=== PATIENT | female | born 1980 | race Two or more races ===

== ENCOUNTER → 2024-05-12 | Outpatient (CLI) | payer BC, MEDICAID ==
[2024-05-12 08:00] LABS: Basophils # (auto) 0 10 ^3/uL (0-0.2); Basophils % (auto) 0.3 % (0.0-2.0); Eosinophils # (auto) 0.3 10 ^3/uL (0-0.8); Eosinophils % (auto) 2.4 % (0.0-7.0); Hemoglobin 14.3 g/dL (12.2-16.2); Lymphocytes # (auto) 2.6 10 ^3/uL (0.4-5.4); Lymphocytes % (auto) 23.6 % (10.0-50.0); Mean Corpuscular Hemoglobin 29.6 pg (28.0-32.0); Mean Corpuscular Volume 87.1 fL (80.0-100.0); Monocytes # (auto) 0.5 10 ^3/uL (0-1.3); Monocytes % (auto) 4.8 % (0.0-12.0); Neutrophils # (auto) 7.7 10 ^3/uL (1.6-8.6); Neutrophils % (auto) 68.9 % (37.0-80.0); Red Blood Cells 4.82 10^6/uL (4.0-5.20); White Blood Cell 11.1 10^3/uL (4.4-10.8)
[2024-05-12 08:18] LABS: Albumin 3.9 g/dL (3.2-4.8); Alkaline Phosphatase 104 U/L (46-116); Anion Gap 10 (5-15); Aspartate Aminotransferase 14 U/L (13-40); BUN/Creatinine Ratio 12.6 (10.0-20.0); Bilirubin, Total 0.6 mg/dL (0.2-1.0); Blood Urea Nitrogen 12 mg/dL (9-23); Calcium 9.3 mg/dL (8.7-10.4); Carbon Dioxide 25 mmol/L (20-30); Chloride 107 mmol/L (98-107); Cholesterol 182 mg/dL (< 200); Glucose 106 mg/dL (74-106); HDL Cholesterol 40 mg/dL (40-59); LDL Cholesterol 134 mg/dL (< 100); Potassium 3.1 mmol/L (3.5-5.1); Sodium 142 mmol/L (136-145); Total Protein 6.5 g/dL (5.7-8.2); Triglycerides 176 mg/dL (< 150)
[2024-05-12 08:21] LABS: Alanine Aminotransferase < 9 U/L (7-40)
== END | disposition home or self-care (01) ==
LOC: LAB 07:28
PROVIDERS: ATTEND Student in an Organized Health Care Education/Training Program
DX: Z00.00 Encounter for general adult medical examination without abnormal findings (principal); I10 Essential (primary) hypertension; E66.9 Obesity, unspecified; E03.9 Hypothyroidism, unspecified
CPT/HCPCS: 36415; 80053; 80061; 84443; 85025

== ENCOUNTER 2025-02-15 07:52 | Emergency (ER) | payer BC, MEDICAID ==
[~2025-02-15] VITALS: Ht 160 cm; Wt 125.5 kg
[2025-02-15 08:20] VITALS: PULSE 79; RESP 17; O2SAT 96
--- NOTE | 2025-02-15 08:24 | ED.PDOC ---
General HPI Comments 45 year old female presents to the ED with a chief complaint of RT flank pain onset 1 week. Patient states she began experiencing RT flank pain 1 week ago, had a KUB done 5 days ago, was told she had 0.7 cm stone. Patient noticed pain worsens when she lifts RT leg. PMHx kidney stone, HTN. Denies nausea, vomiting, diarrhea, chest pain, shortness of breath, fevers, chills, dysuria,hematuria. No other symptoms or modifying factors present at this time. Chief Complaint: Flank Pain Time Seen by MD: 08:18 Primary Care Provider: jon Rodgers notes: Medications, Allergies Allergies: Coded Allergies: NO KNOWN ALLERGIES (Unverified , 02/15/25) Information Source: Patient Mode of Arrival: Ambulatory Severity: Moderate Timing: Weeks Duration: Since onset Prehospital treatment: None Onset: Spontaneous Symptoms: None History of: Kidney stone Location: (R) Flank Modifying factors: None associated signs and symptoms: Flank Pain Past Medical History PAST MEDICAL HISTORY: HTN, Kidney Stones Surgical History: Denies all surgeries RANCH HAND LIVESTOCK History: No Pertinent RANCH HAND LIVESTOCK History Family History Family History: Reviewed,noncontributory to illness, No family hx of Cancer, No family hx of DM, No family hx of Heart earnest, No family hx of HTN, No family hx ofKidney earnest, No family hx of Liver earnest, No family hx of Lung earnest, No family hx of Stroke Social History Smoker: Non-Smoker Alcohol: Denies ETOH Use Drugs: Denies Drug Use Lives In: Home Constitutional: denies: chills, diaphoresis, fatigue, fever, malaise, sweats, weakness, others EENTM: denies: blurred vision, double vision, ear bleeding, ear discharge, ear drainage, ear pain, ear ringing, eye pain, eye redness, hearing loss, mouth pain, mouth swelling, nasal discharge, nose bleeding, nose congestion, nose p ain, photophobia, tearing, throat pain, throat swelling, voice changes, others Respiratory: denies: cough, hemoptysis, orthopnea, SOB at rest, shortness of breath, SOB with excertion, stridor, wheezing, others Cardiovascular: denies: chest pain, dizzy spells, diaphoresis, Dyspnea on exertion, edema, irregular heart beat, left arm pain, lightheadedness, palpitations, PND, syncope, others Gastrointestinal: denies: abdomen distended, abdominal pain, blood streaked bowels, constipated, diarrhea, dysphagia, difficulty swallowing, hematemesis, melena, nausea, poor appetite, poor fluid intake, rectal bleeding, rectal pain, vomiting, others Genitourinary: reports: flank pain; denies: abnormal vagina bleeding, burning, dyspareunia, dysuria, frequency, hematuria, incontinence, pain, , vagina discharge, urgency, others Neurological: denies: dizziness, fainting, headache, left sided numbness, left sided weakness, numbness, paresthesia, pre-existing deficit, right sided numbness, right sided weakness, seizure, speech problems, tingling, tremors, weakness, others Musculoskeletal: denies: back pain, gout, joint pain, joint swelling, muscle pain, muscle stiffness, neck pain, others Integumetry: denies: bruises, change in color, change in hair/nails, dryness, laceration, lesions, lumps, rash, wounds, others Allergic/Immunocompromised: denies: Difficulty Healing, Frequent Infections, Hives, Itching, others Hematologic/Lymphatic: denies: anemia, blood clots, easy bleeding, easy bruising, swollen glands, others Endocrine: denies: excessive hunger, excessive sweating, excessive thirst, excessive urination, flushing, intolerance to cold, intolerance to heat, unexpl ained weight gain, unexplained weight loss, others Psychiatric: denies: anxiety, bipolar disorder, depression, hopeless, panic disorder, schizophrenia, sleepless, suicidal, others All Other Systems: Reviewed and Negative Physical Exam General Appearance: Moderate Distress, Normal HEENT: Normal ENT Inspection, Pharynx Normal, TMs Normal Neck: Full Range of Motion, Non-Tender, Normal, Normal Inspection Respiratory: Chest Non-Tender, Lungs Clear, No Accessory Muscle Use, No Respiratory Distress, Normal Breath Sounds Cardiovascular: No Edema, No JVD, No Murmur, No Gallop, Normal Peripheral Pulses, Regular Rate/Rhythm Breast Exam: Deferred Gastrointestinal: No Organomegaly, Non Tender, No Pulsatile Mass, Normal Bowel Sounds, Soft Genitalia: Deferred Pelvic: Deferred Rectal: Deferred Extremities: No calf tenderness, Normal capillary refill, Normal inspection, Normal range of motion, Non-tender, No pedal edema Musculoskeletal : Apperance: Normal Neurologic: Alert, neurology physician assistant II-XII nml as Tested, No Motor Deficits, Normal Affect, Normal Mood, No Sensory Deficits Cerebellar Function: Normal Reflexes: Normal Skin: Dry, Normal Color, Warm Peripheral Pulses: 3+ Radial (R), 3+ Radial (L) Lymphatic: No Adenopathy Was a procedure done? Was a procedure done?: No Differential Diagnosis Kidney stone (Female): Musculoskeletal pain, Urinary obstruction, Urolithiasis X-Ray, Labs, Meds, VS Vital Signs Date Time Temp Pulse Resp B/P (MAP) Pulse Ox O2 Delivery O2 Flow Rate FiO2 02/15/25 08:20 98.6 79 17 114/68 (83) 96 98.6 02/15/25 08:20 79 17 96 Room Air* 0 21 02/15/25 08:09 98.6 79 17 114/68 (83) 96 98.6 Lab Test 02/15/25 08:30 02/15/25 08:05 Range/Units White Blood Count 10.0 4.4-10.8 10^3/uL Red Blood Count 5.16 4.0-5.20 10^6/uL Hemoglobin 15.4 12.2-16.2 g/dL Hematocrit 44.7 36.0-46.0 % Mean Corpuscular Volume 86.6 80.0-100.0 fL Mean Corpuscular Hemoglobin 29.8 28.0-32.0 pg Mean Corpuscular Hemoglobin Concent 34.4 32.0-36.0 g/dL Red Cell Distribution Width 17.0 H 11.8-14.3 % Platelet Count 356 140-450 10^3/uL Mean Platelet Volume 8.3 6.9-10.8 fL Neutrophils (%) (Auto) 71.2 37.0-80.0 % Lymphocytes (%) (Auto) 23.0 10.0-50.0 % Monocytes (%) (Auto) 3.8 0.0-12.0 % Eosinophils (%) (Auto) 1.4 0.0-7.0 % Basophils (%) (Auto) 0.6 0.0-2.0 % Neutrophils # (Auto) 7.1 1.6-8.6 10 ^3/uL Lymphocytes # (Auto) 2.3 0.4-5.4 10 ^3/uL Monocytes # (Auto) 0.4 0-1.3 10 ^3/uL Eosinophils # (Auto) 0.1 0-0.8 10 ^3/uL Basophils # (Auto) 0.1 0-0.2 10 ^3/uL Nucleated Red Blood Cells 0.1 % Sodium Level 140 136-145 mmol/L Potassium Level 3.5 3.5-5.1 mmol/L Chloride Level 108 H 98-107 mmol/L Carbon Dioxide Level 22 20-31 mmol/L Anion Gap 10 5-15 Blood Urea Nitrogen 14 9-23 mg/dL Creatinine 1.05 H 0.550-1.02 mg/dL Glomerular Filtration Rate Calc 67 >90 mL/min BUN/Creatinine Ratio 13.3 10.0-20.0 Serum Glucose 99 74-106 mg/dL Calcium Level 9.4 8.7-10.4 mg/dL Urine Color Light-yellow Yellow Urine Clarity Clear Clear Urine pH 7.0 5.0-9.0 Urine Specific [place] 1.017 1.001-1.035 Urine Protein Negative Negative Urine Ketones Negative Negative Urine Blood Trace H Negative /uL Urine Nitrite Negative Negative Urine Bilirubin Negative Negative Urine Urobilinogen Normal Negative mg/dL Urine Leukocyte Esterase 2+ Negative /uL Urine RBC 1 0 - 4 /hpf Urine Microscopic WBC 3 0-5 /HPF Urine Squamous Epithelial Cells Few <5 /hpf Urine Bacteria None seen None Seen /hpf Urine Glucose Normal Normal mg/dL Current Medications Medications (Trade) Dose Ordered Sig/Rafael Route Start Time Stop Time Status Last Admin Sodium Chloride 1,000 ml @ 1,000 mls/hr Q1H ONCE IV 02/15/25 08:30 02/15/25 09:29 DC 02/15/25 09:36 Sodium Chloride 1,000 ml @ 150 mls/hr Q6H40M ONCE IV 02/15/25 08:30 02/15/25 15:09 02/15/25 09:37 Ketorolac Tromethamine (Toradol Injection) 30 mg ONCE ONCE IV 02/15/25 08:30 02/15/25 08:31 DC 02/15/25 09:37 Tamsulosin HCl (Flomax) 0.4 mg ONCE ONCE PO 02/15/25 10:15 02/15/25 10:16 DC 02/15/25 10:24 Patient alert. Complaining of flank pain. Vitals stable. Establish intravenous access. Given fluids. Given Toradol. Reviewed her history. Continue cardiac monitoring. Urinalysis shows UTI. Was given prescription of Macrobid. CT scan of the abdomen does show 4 mm stone. Nonobstructive. Explained to the patient. Was told to follow up with her primary care physician. Was told to come back if there is any problem. [place] [id number] Ph: [phone] DIAGNOSTIC IMAGING Diagnostic Imaging Report : [id number] Signed PATIENT: MITZY COMER ACCT: [id number] UNIT: [id number] : 1980 LOC: ER ROOM / BED: / AGE / SEX: 45 / F ADM STATUS: REG ER SERVICE 8 ORDERING PHYSICIAN: AMINTA PERDUE MD PROCEDURE(s): ABPL - CT AB PEL WO CON-NO ORAL OR IV REASON: stone ORDER NUMBER(s): [id number], ACCESSION NUMBER(s): [id number] Exam: CT CT AB PEL WO CON-NO ORAL OR IV History: Stone Comparison Study: None available at time of dictation. Technique: Multidetector spiral CT of the abdomen and pelvis was performed from lung bases to pubic symphysis. Imaging was performed without intravenous con trast. Coronal and sagittal multiplanar reformats were obtained from the axial data set by the technologist. Radiation Dose : 1. Abdomen/Pelvis: CTDIvol 27.9 mGy, DLP 1608.6 mGy*cm. Findings: Evaluation of vasculature and solid organs is limited due to lack of intravenous contrast use. Lung Bases: Lung bases are clear. Visualized portions of the heart and pericardium are unremarkable. Liver: The liver is normal in size. No focal lesions. Gallbladder and Biliary Tree: The gallbladder is surgically absent. No intrahepatic or extrahepatic biliary ductal dilatation. Spleen: Unremarkable Pancreas: The pancreas is grossly unremarkable. Adrenal Glands: Unremarkable Kidneys: 4 mm nonobstructive calculus in the lower pole of the right kidney. The left kidney is unremarkable. No hydronephrosis. GI tract: The stomach is grossly normal in appearance. No evidence of small kamron l wall thickening or abnormal dilatation to suggest bowel obstruction. Sigmoid diverticulosis without acute diverticulitis. Normal appendix. Peritoneum/mesentery/retroperitoneum. No evidence of free intraperitoneal air. No ascites. No evidence of suspicious lymphadenopathy. Abdominal Wall: Unremarkable. Vasculature: The visualized abdominal aorta is normal in size and caliber. Evaluation of abdominal and pelvic vessels is limited due to lack of intravenous contrast. Urinary Bladder: Grossly unremarkable for degree of distention. Pelvic Organs: Unremarkable Musculoskeletal: No aggressive focal bony lesions, acute fractures or dislocation. IMPRESSION: 1. No acute abdominal or pelvic findings. 2. Nonobstructive right nephrolithiasis measuring 4 mm. 3. Sigmoid diverticulosis without acute diverticulitis. 4. Cholecystectomy. ATED BY: TAURUS HARGROVE MD DICTATED DATE/TIME: 02/15/25910 SIGNED BY: TAURUS HARGROVE MD SIGNED DATE/TIME: 02/15/25910 CC: Time of 1ST Reevaluation: 08:48 Reevaluation 1ST: Unchanged Time of 2ND Reevaluation: 10:39 Reevaluation 2ND: Improved Patient Education/Counseling: Diagnosis, Treatment, Prognosis Family Education/Counseling: No Family Present Additional Information The following tests were ordered, and results were reviewed by me: CBC, UA, BMP, CT AB PEL WO CON I reviewed and agreed with the following test results read by other providers: CT AB PEL WO CON I discussed treatment and results with medical personnel and: Patient Comprehensive systems review obtained and negative except for what is stated in the HPI. Departure 1 Departure Time of Disposition: 08:35 Impression: Primary Impression: Kidney stone Additional Impression: UTI (urinary tract infection) Qualified Codes: N30.00 - Acute cystitis without hematuria Disposition: HOME / SELF CARE / HOMELESS Condition: Good e-Prescriptions Nitrofurantoin Monohydrate Mac (Macrobid) 100 Mg Cap 100 MG PO BID for 7 Days, #14 CAP Prov: AMINTA PERDUE MD 02/15/25 Discharged With: Self Critical Care Note Critical Care Time?: No Stability Stability form required: No Heart Score Heart Score: Heart Score Response (Comments) Value History N/A 0 EKG N/A 0 Age N/A 0 Risk Factors N/A 0 Troponin N/A 0 Total 0 I personally scribed for AMINTA PERDUE MD ([email or web address]) on 02/15/25 at 08:24. Electronically submitted by Karely Mcpherson ([email or web address]). I personally scribed for AMINTA PERDUE MD ([email or web address]) on 02/15/25 at 08:55. Electronically submitted by Karely Mcpherson ([email or web address]). I personally scribed for AMINTA PERDUE MD ([email or web address]) on 02/15/25 at 09:29. Electronically submitted by Karely Mcpherson ([email or web address]). AMINTA PERDUE MD Feb 15, 2025 08:24
[2025-02-15 09:02] LABS: Potassium 3.5 mmol/L (3.5-5.1); Sodium 140 mmol/L (136-145)
[2025-02-15 09:03] LABS: Anion Gap 10 (5-15); Calcium 9.4 mg/dL (8.7-10.4); Carbon Dioxide 22 mmol/L (20-31)
[2025-02-15 09:08] LABS: BUN/Creatinine Ratio 13.3 (10.0-20.0); Blood Urea Nitrogen 14 mg/dL (9-23); Glucose 99 mg/dL (74-106)
[2025-02-15 09:09] LABS: Basophils # (auto) 0.1 10 ^3/uL (0-0.2); Basophils % (auto) 0.6 % (0.0-2.0); Chloride 108 mmol/L (98-107); Eosinophils # (auto) 0.1 10 ^3/uL (0-0.8); Eosinophils % (auto) 1.4 % (0.0-7.0); Hematocrit 44.7 % (36.0-46.0); Hemoglobin 15.4 g/dL (12.2-16.2); Lymphocytes # (auto) 2.3 10 ^3/uL (0.4-5.4); Mean Corpuscular Hemoglobin 29.8 pg (28.0-32.0); Mean Corpuscular Hgb Conc. 34.4 g/dL (32.0-36.0); Mean Corpuscular Volume 86.6 fL (80.0-100.0); Monocytes # (auto) 0.4 10 ^3/uL (0-1.3); Monocytes % (auto) 3.8 % (0.0-12.0); Neutrophils # (auto) 7.1 10 ^3/uL (1.6-8.6); Neutrophils % (auto) 71.2 % (37.0-80.0); Nucleated Red Blood Cells % 0.1 %; Platelet Count (auto) 356 10^3/uL (140-450); Red Blood Cells 5.16 10^6/uL (4.0-5.20)
--- NOTE | 2025-02-15 09:14 | DVH ---
Exam: CT CT AB PEL WO CON-NO ORAL OR IV History: Stone Comparison Study: None available at time of dictation. Technique: Multidetector spiral CT of the abdomen and pelvis was performed from lung bases to pubic s ymphysis. Imaging was performed without intravenous contrast. Coronal and sagittal multiplanar reform ats were obtained from the axial data set by the technologist. Radiation Dose : 1. Abdomen/Pelvis: CTDIvol 27.9 mGy, DLP 1608.6 mGy*cm. Findings: Evaluation of vasculature and solid organs is limited due to lack of intravenous contrast use. Lung Bases: Lung bases are clear. Visualized portions of the heart and pericardium are unremarkable. Liver: The liver is normal in size. No focal lesions. Gallbladder and Biliary Tree: The gallbladder is surgically absent. No intrahepatic or extrahepatic b iliary ductal dilatation. Spleen: Unremarkable Pancreas: The pancreas is grossly unremarkable. Adrenal Glands: Unremarkable Kidneys: 4 mm nonobstructive calculus in the lower pole of the right kidney. The left kidney is unre markable. No hydronephrosis. GI tract: The stomach is grossly normal in appearance. No evidence of small bowel wall thickening or abnormal dilatation to suggest bowel obstruction. Sigmoid diverticulosis without acute diverticulitis . Normal appendix. Peritoneum/mesentery/retroperitoneum. No evidence of free intraperitoneal air. No ascites. No evidenc e of suspicious lymphadenopathy. Abdominal Wall: Unremarkable. Vasculature: The visualized abdominal aorta is normal in size and caliber. Evaluation of abdominal a nd pelvic vessels is limited due to lack of intravenous contrast. Urinary Bladder: Grossly unremarkable for degree of distention. Pelvic Organs: Unremarkable Musculoskeletal: No aggressive focal bony lesions, acute fractures or dislocation. IMPRESSION: 1. No acute abdominal or pelvic findings. 2. Nonobstructive right nephrolithiasis measuring 4 mm. 3. Sigmoid diverticulosis without acute diverticulitis. 4. Cholecystectomy.
[2025-02-15] MEDS: SODIUM CHLORIDE 0.9% 1,000 ML IV ONE ×2 (09:36→09:37)
[2025-02-15] MEDS: KETOROLAC TROMETH 30 MG/ML 1ML VIAL IV ONE (09:37)
[2025-02-15 09:50] LABS: Urine Bacteria None Seen /hpf (None Seen)
[2025-02-15 10:13] LABS: Urine Blood TRACE /uL (Negative); Urine Clarity Clear (Clear); Urine Color Light-Yellow (Yellow); Urine Protein, UAD Negative (Negative); Urine Specific Gravity 1.017 (1.001-1.035); Urine Squamous Epithelial Cell FEW /hpf (<5); Urine Urobilinogen Normal (Negative); Urine WBC 3 /HPF (0-5)
[2025-02-15] MEDS: TAMSULOSIN HYDROCHLORIDE 0.4 MG CAP PO ONE (10:24)
[2025-02-15] MEDS ORDERED: NITR-87 PO (10:39)
[2025-02-15 11:04] VITALS: BP 151/71; PULSE 64; RESP 18; TEMP 98.9; O2SAT 97
== END 2025-02-15 11:07 | disposition home or self-care (01) ==
LOC: ER 07:52
DX: N20.0 Calculus of kidney (principal); N39.0 Urinary tract infection, site not specified; I10 Essential (primary) hypertension; Z87.442 Personal history of urinary calculi
CPT/HCPCS: 36415; 74176; 80048; 81001; 85025; 96361; 96374; 99285; J1885; J7030

== ENCOUNTER 2025-02-19 04:54 | Inpatient (IN) | payer BC, MEDICAID ==
[~2025-02-19] VITALS: Ht 160 cm; Wt 131.1 kg
[~2025-02-19 04:54] MED LIST: NITR-87 PO
--- NOTE | 2025-02-19 05:21 | ED.PDOC ---
General HPI Comments 45-year-old female came to ER for right flank pains. Patient has been having right flank pains for the past 5 days. Was seen and diagnosed of kidney stones. Currently taking Flomax, [place] and Macrobid. Few hours ago while patient was sleeping, she woke up due to sudden-onset right flank pains, worse than before, associated with nausea. Denies any vomiting or fever. Denies any dysuria or gross hematuria. Scheduled for ESWL on March 10. Chief Complaint: Flank Pain Time Seen by MD: 05:19 Primary Care Provider: jon Rodgers notes: Nurses Notes Allergies: Coded Allergies: NO KNOWN ALLERGIES (Unverified , 02/15/25) Home Meds Active Scripts Cefdinir (Cefdinir) 300 Mg Cap, 1 CAP PO BID for 10 Days, #14 CAP Prov:LA NENA CELIS MD 02/19/25 Nitrofurantoin Monohydrate Mac (Macrobid) 100 Mg Cap, 100 MG PO BID for 7 Days, #14 CAP Prov:AMINTA PERDUE MD 02/15/25 Information Source: Patient Mode of Arrival: Ambulatory Severity: Moderate Inability to void: Mild Timing: Hours Duration: Since onset Has not urinated for: Minutes Prehospital treatment: None Onset: Spontaneous Symptoms: None History of: Kidney stone Location: (R) Flank associated signs and symptoms: Nausea, Flank Pain Past Medical History PAST MEDICAL HISTORY: HTN, Kidney Stones Surgical History: Denies all surgeries MATERIAL MOVER History: No Pertinent MATERIAL MOVER History Family History Family History: Reviewed,noncontributory to illness, No family hx of Cancer, No family hx of DM, No family hx of Heart earnest, No family hx of HTN, No family hx ofKidney earnest, No family hx of Liver earnest, No family hx of Lung earnest, No family hx of Stroke Social History Smoker: Non-Smoker Alcohol: Denies ETOH Use Drugs: Denies Drug Use Lives In: Home Constitutional: denies: chills, diaphoresis, fatigue, fever, malaise, sweats, weakness, others EENTM: denies: blurred vision, double vision, ear bleeding, ear discharge, ear drainage, ear pain, ear ringing, eye pain, eye redness, hearing loss, mouth pain, mouth swelling, nasal discharge, nose bleeding, nose congestion, nose pain, photophobia, tearing, throat pain, throat swelling, voice changes, others Respiratory: denies: cough, hemoptysis, orthopnea, SOB at rest, shortness of breath, SOB with excertion, stridor, wheezing, others Cardiovascular: denies: chest pain, dizzy spells, diaphoresis, Dyspnea on exertion, edema, irregular heart beat, left arm pain, lightheadedness, palpi tations, PND, syncope, others Gastrointestinal: reports: nausea; denies: abdomen distended, abdominal pain, blood streaked bowels, constipated, diarrhea, dysphagia, difficulty swallowing, hematemesis, melena, poor appetite, poor fluid intake, rectal bleeding, rectal pain, vomiting, others Genitourinary: reports: flank pain (Right); denies: abnormal vagina bleeding, burning, dyspareunia, dysuria, frequency, hematuria, incontinence, pain, , vagina discharge, urgency, others Neurological: denies: dizziness, fainting, headache, left sided numbness, left sided weakness, numbness, paresthesia, pre-existing deficit, right sided numbness, right sided weakness, seizure, speech problems, tingling, tremors, weakness, others Musculoskeletal: denies: back pain, gout, joint pain, joint swelling, muscle pain, muscle stiffness, neck pain, others Integumetry: denies: bruises, change in color, change in hair/nails, dryness, laceration, lesions, lumps, rash, wounds, others Allergic/Immunocompromised: denies: Difficulty Healing, Frequent Infections, Hives, Itching, others Hematologic/Lymphatic: denies: anemia, blood clots, easy bleeding, easy bruising, swollen glands, others Endocrine: denies: excessive hunger, excessive sweating, excessive thirst, excessive urination, flushing, intolerance to cold, intolerance to heat, unexplained weight gain, unexplained weight loss, others Psychiatric: denies: anxiety, bipolar disorder, depression, hopeless, panic disorder, schizophrenia, sleepless, suicidal, others Physical Exam General Appearance: No Apparent Distress, Normal HEENT: Normal ENT Inspection, Pharynx Normal, TMs Normal Neck: Full Range of Motion, Non-Tender, Normal, Normal Inspection Respiratory: Chest Non-Tender, Lungs Clear, No Accessory Muscle Use, No Respiratory Distress, Normal Breath Sounds Cardiovascular: No Edema, No JVD, No Murmur, No Gallop, Normal Peripheral Pulses, Regular Rate/Rhythm Breast Exam: Deferred Gastrointestinal: No Organomegaly, No Pulsatile Mass, Normal Bowel Sounds, Soft, Tenderness (Right CVA) Genitalia: Deferred Pelvic: Deferred Rectal: Deferred Extremities: No calf tenderness, Normal capillary refill, Normal inspection, Normal range of motion, Non-tender, No pedal edema Musculoskeletal : Apperance: Normal Neurologic: Alert, wet pan mixer II-XII nml as Tested, No Motor Deficits, Normal Affect, Normal Mood, No Sensory Deficits Cerebellar Function: Normal Reflexes: Normal Skin: Dry, Normal Color, Warm Lymphatic: No Adenopathy Was a procedure done? Was a procedure done?: No Differential Diagnosis Kidney stone (Female): Pyelonephritis, Renal failure, Strain, Urinary obstruction, Urolithiasis Urinary Problem (Female): Pyelonephritis, Urinary retention, Urolithiasis, UTI X-Ray, Labs, Meds, VS Vital Signs Date Time Temp Pulse Resp B/P (MAP) Pulse Ox O2 Delivery O2 Flow Rate FiO2 02/19/25 05:06 98.2 80 20 155/90 (111) 98 98.2 Lab Test 02/19/25 06:25 02/19/25 05:42 Range/Units Urine Color Yellow Yellow Urine Clarity Turbid H Clear Urine pH 6.5 5.0-9.0 Urine Specific [place] 1.013 1.001-1.035 Urine Protein Negative Negative Urine Ketones 1+ H Negative Urine Blood 1+ H Negative /uL Urine Nitrite Negative Negative Urine Bilirubin Negative Negative Urine Urobilinogen Normal Negative mg/dL Urine Leukocyte Esterase 3+ Negative /uL Urine RBC 1 0 - 4 /hpf Urine Microscopic WBC 13 H 0-5 /HPF Urine Squamous Epithelial Cells Mod <5 /hpf Urine Bacteria Few H None Seen /hpf Urine Yeast (Budding) Occasional None Seen /hpf Urine Glucose Normal Normal mg/dL White Blood Count 8.7 4.4-10.8 10^3/uL Red Blood Count 4.96 4.0-5.20 10^6/uL Hemoglobin 14.8 12.2-16.2 g/dL Hematocrit 43.0 36.0-46.0 % Mean Corpuscular Volume 86.7 80.0-100.0 fL Mean Corpuscular Hemoglobin 29.9 28.0-32.0 pg Mean Corpuscular Hemoglobin Concent 34.5 32.0-36.0 g/dL Red Cell Distribution Width 16.4 H 11.8-14.3 % Platelet Count 387 140-450 10^3/uL Mean Platelet Volume 8.1 6.9-10.8 fL Neutrophils (%) (Auto) 72.2 37.0-80.0 % Lymphocytes (%) (Auto) 22.0 10.0-50.0 % Monocytes (%) (Auto) 4.1 0.0-12.0 % Eosinophils (%) (Auto) 1.4 0.0-7.0 % Basophils (%) (Auto) 0.3 0.0-2.0 % Neutrophils # (Auto) 6.3 1.6-8.6 10 ^3/uL Lymphocytes # (Auto) 1.9 0.4-5.4 10 ^3/uL Monocytes # (Auto) 0.4 0-1.3 10 ^3/uL Eosinophils # (Auto) 0.1 0-0.8 10 ^3/uL Basophils # (Auto) 0 0-0.2 10 ^3/uL Nucleated Red Blood Cells 0.1 % Sodium Level 140 136-145 mmol/L Potassium Level 3.5 3.5-5.1 mmol/L Chloride Level 107 98-107 mmol/L Carbon Dioxide Level 23 20-31 mmol/L Anion Gap 10 5-15 Blood Urea Nitrogen 11 9-23 mg/dL Creatinine 0.93 0.550-1.02 mg/dL Glomerular Filtration Rate Calc 77 >90 mL/min BUN/Creatinine Ratio 11.8 10.0-20.0 Serum Glucose 115 H 74-106 mg/dL Calcium Level 9.0 8.7-10.4 mg/dL Total Bilirubin 0.6 0.2-1.0 mg/dL Aspartate Amino Transferase (AST) 15 13-40 U/L Alanine Aminotransferase (ALT) < 9 7-40 U/L Alkaline Phosphatase 103 46-116 U/L Total Protein 7.5 5.7-8.2 g/dL Albumin 4.4 3.2-4.8 g/dL Lipase 40 12-53 U/L Time of 1ST Reevaluation: 05:16 Reevaluation 1ST: Unchanged Patient Education/Counseling: Diagnosis, Treatment, Prognosis, Need For Follow Up Family Education/Counseling: Diagnosis, Treatment, Prognosis, Need For Follow Up, No Family Present Additional Information pt continues to be visibly uncomfortable. she recently had a kidney stone and UTI. she failed outpatient antibiotic and continues to have symptoms. pt's ct does not show stones but some stones are not visible on CT. i will admit pt for symptoms treatment and antibiotic with urine culture. she may be at risk for sepsis if she has a stone which is not seen on the CT and uti associated Departure 1 Departure Time of Disposition: 06:59 Impression: Primary Impression: Flank pain Additional Impression: UTI (urinary tract infection) Qualified Codes: N39.0 - Urinary tract infection, site not specified Disposition: ADMITTED INPATIENT Admit to: Med Surg Condition: Stable e-Prescriptions Cefdinir (Cefdinir) 300 Mg Cap 1 CAP PO BID for 10 Days, #14 CAP Prov: LA NENA CELIS MD 02/19/25 Discharged With: Self, Relative Critical Care Note Critical Care Time?: Yes (45 min-critical care time only) Critical care comment: Due to concerns for patients condition deteriorating, the care required my highest level of attention and readiness to intervene. I assessed the patient, reviewed the medical records, ordered the appropriate tests and treatments, then reassessed for results and responsiveness. I communicated with medical personnel and consultants and formulated a plan of care. Total critical care time excludes any procedures Stability Stability form required: No Heart Score Heart Score: Heart Score Response (Comments) Value History N/A 0 EKG N/A 0 Age N/A 0 Risk Factors N/A 0 Troponin N/A 0 Total 0 I personally scribed for LA NENA CELIS MD ([email or web address]) on 02/19/25 at 05:20. Electronically submitted by Scott Yoder ([email or web address]). LA NENA CELIS MD Feb 19, 2025 05:20 INÉS HALL MD Feb 19, 2025 07:02
[2025-02-19] MEDS ORDERED: CEFD300C2 PO (05:42)
--- NOTE | 2025-02-19 06:08 | DVH ---
Exam: CT CT AB PEL WO CON-NO ORAL OR IV History: right flank pain Comparison Study: CT CT AB PEL WO CON-NO ORAL OR IV on DOS: 02/15/25 Technique: Multidetector spiral CT of the abdomen was performed from lung bases to pubic symphysis. I maging was performed without IV contrast. Axial, coronal and sagittal multiplanar reformats were obta ined from the axial data set by the technologist. Radiation Dose : 1. Abdomen/Pelvis: CTDIvol 28.01 mGy, DLP 1853.04 mGy*cm. Findings: Evaluation of solid organs is limited due to lack of intravenous contrast use. Lung Bases: No acute or significant lung base finding. Normal heart size. No pleural or pericardial effusion. Liver: The liver is enlarged, measuring 21.7 cm in craniocaudal dimension. No focal lesions. 0.7 cm focal subcapsular calcification noted along the inferomedial hepatic margin. Gallbladder and Biliary Tree: The gallbladder is surgically absent. Spleen: Unremarkable Pancreas: The pancreas is grossly normal in appearance. Adrenal Glands: Unremarkable Kidneys: Nonobstructing right inferior pole pelvocaliceal calculus measures 0.3 cm. No evidence of hy dronephrosis. The kidneys are otherwise normal in appearance. Bladder: Grossly unremarkable for degree of distention. Bowel: The stomach is grossly normal in appearance. Small bowel and colon are normal in caliber and d istribution. The appendix is normal. Ascites: Absent Lymphadenopathy: No mesenteric, retroperitoneal or periportal lymphadenopathy. Abdominal Wall and Mesentery: Unremarkable. Vasculature: The visualized abdominal aorta is normal in size and caliber. Evaluation of abdominal a nd pelvic vessels is limited due to lack of intravenous contrast. Pelvic Organs: Unremarkable Musculoskeletal: No aggressive focal bony lesions, acute fractures or dislocation. IMPRESSION: 1. No acute abdominal or pelvic findings. 2. Nonobstructive right nephrolithiasis. 3. Hepatomegaly. Radiation optimization: All CT scans at this facility use at least one of these dose optimization teto hniques: automated exposure control mA and/or kV adjustment per patient size (includes targeted exam s where dose is matched to clinical indication) or iterative reconstruction.
[2025-02-19 06:28] LABS: Basophils # (auto) 0 10 ^3/uL (0-0.2); Basophils % (auto) 0.3 % (0.0-2.0); Eosinophils # (auto) 0.1 10 ^3/uL (0-0.8); Eosinophils % (auto) 1.4 % (0.0-7.0); Hemoglobin 14.8 g/dL (12.2-16.2); Lymphocytes # (auto) 1.9 10 ^3/uL (0.4-5.4); Mean Corpuscular Hemoglobin 29.9 pg (28.0-32.0); Mean Corpuscular Hgb Conc. 34.5 g/dL (32.0-36.0); Mean Corpuscular Volume 86.7 fL (80.0-100.0); Monocytes # (auto) 0.4 10 ^3/uL (0-1.3); Monocytes % (auto) 4.1 % (0.0-12.0); Neutrophils # (auto) 6.3 10 ^3/uL (1.6-8.6); Neutrophils % (auto) 72.2 % (37.0-80.0); Nucleated Red Blood Cells % 0.1 %; Platelet Count (auto) 387 10^3/uL (140-450); Red Blood Cells 4.96 10^6/uL (4.0-5.20); Red Cell Distribution Width 16.4 % (11.8-14.3); White Blood Cell 8.7 10^3/uL (4.4-10.8)
[2025-02-19 06:32] LABS: Albumin 4.4 g/dL (3.2-4.8); Alkaline Phosphatase 103 U/L (46-116); Anion Gap 10 (5-15); Aspartate Aminotransferase 15 U/L (13-40); BUN/Creatinine Ratio 11.8 (10.0-20.0); Bilirubin, Total 0.6 mg/dL (0.2-1.0); Blood Urea Nitrogen 11 mg/dL (9-23); Carbon Dioxide 23 mmol/L (20-31); Chloride 107 mmol/L (98-107); Lipase 40 U/L (12-53); Potassium 3.5 mmol/L (3.5-5.1); Sodium 140 mmol/L (136-145); Total Protein 7.5 g/dL (5.7-8.2)
[2025-02-19 06:43] LABS: Alanine Aminotransferase < 9 U/L (7-40); Glucose 115 mg/dL (74-106)
[2025-02-19 06:43] LABS: Urine Bacteria FEW /hpf (None Seen); Urine Blood 1+ /uL (Negative); Urine Budding Yeast OCCASIONAL /hpf (None Seen); Urine Clarity Turbid (Clear); Urine Color Yellow (Yellow); Urine Protein, UAD Negative (Negative); Urine Specific Gravity 1.013 (1.001-1.035); Urine Squamous Epithelial Cell MOD /hpf (<5); Urine Urobilinogen Normal (Negative); Urine WBC 13 /HPF (0-5); Urine pH 6.5 (5.0-9.0)
--- NOTE | 2025-02-19 07:07 | DVHHP2 ---
History of Present Illness Reason for Visit: right flank pain History of Present Illness 45-year-old female with a past medical history significant for hypertension (HTN) and nephrolithiasis (kidney stones) who presents with acute worsening right-sided flank pain. The patient reports a 5-day history of flank discomfort, previously attributed to a known kidney stone for which she has a urological procedure scheduled on March 10, 2025. She has been managing symptoms at home with flomax. Early this morning, she experienced sudden onset of severe right flank pain radiating to her pelvic region. She denies associated fever, dysuria, hematuria, chest pain, shortness of breath, or diarrhea. In the ED, she underwe nt evaluation including CBC, CMP, UA, and a CT abdomen/pelvis. Labs were unremarkable except for ketonemia some blood and mild bacteria. CT confirmed persistent nephrolithiasis without hydronephrosis. She was treated with Zofran and IV fluids (normal saline), ceftriaxone and toradol diluadid with partial symptom relief. Given her presentation, obstructive uropathy with pain crisis is suspected. While pyelonephritis is considered, since with right flank pain will admit for pain management. Past Medical History Hypertension kidney stones Past Surgical History Denies surgical history Family History Reviewed, non-contributory to the management of this case. Past Social History The patient lives at home, denies smoking, alcohol or illicit drugs abuse. Review of Systems Constitutional: No: Fever, Chills, Sweats, Weakness, Malaise, Other Eyes: No: Pain, Vision change, Conjunctivae inflammation, Eyelid inflammation, Other, Redness ENT: No: Ear pain, Ear discharge, Nose pain, Nose discharge, Nose congestion, Mouth pain, Mouth swelling, Throat pain, Throat swelling, Other Respiratory: No: Cough, Dry, Shortness of breath, SOB with excertion, Wheezing, Hemoptysis, Pleuritic Pain, Sputum, Wheezing, Other Cardiovascular: No: Chest Pain, Palpitations, Orthopnea, Paroxysmal Noc. Dyspnea, Edema, Lt Headedness, Other Gastrointestinal: Nausea, Vomiting, Abdominal Pain; No: Diarrhea, Constipation, Melena, Hematochezia, Other Genitourinary: No Dysuria, No Frequency, No Incontinence, No Hematuria, No Retention, No Other Musculoskeletal: No: other, neck pain, shoulder pain, arm pain, back pain, hand pain, leg pain, foot pain Skin: No: Rash, Lesions, Jaundice, Bruising, Other Neurological: No: Weakness, Numbness, Incoordination, Change in speech, Confusion, Seizures, Other Allergies: Coded Allergies: NO KNOWN ALLERGIES (Unverified , 02/15/25) Exam Vital Signs Vital Signs Date Time Temp Pulse Resp B/P (MAP) Pulse Ox O2 Delivery O2 Flow Rate FiO2 02/19/25 05:06 98.2 80 20 155/90 (111) 98 98.2 General Appearance: Alert, Oriented X3, Cooperative, No acute distress HEENT: Atraumatic, PERRLA, EOMI, Mucous membr. moist/pink Respiratory: Clear to auscultation, Normal air movement Cardiovascular: Regular rate, Normal S1, Normal S2, No murmurs Abdominal: Normal bowel sounds, Soft, No hepatospenomegaly, No masses, Other (right flank pain ) Extremities: No clubbing, No cyanosis, No edema, Normal pulses, No tenderness/swelling Skin: No rashes, No breakdown, No significant lesion Neuro: Normal gait, Normal speech, Strength at 5/5 X4 ext, Normal tone, S ensation intact, Cranial nerves 3-12 NL Psych/Mental Status: Mental status NL, Mood NL Labs/Xrays CT scan abdomen pelvis shows nonobstructing kidney stone I reviewed labs, imaging CT scan abdomen pelvis, EKG and all diagnostic studies on this patient from ED records and the medical chart Labs Test 02/19/25 06:25 02/19/25 05:42 Range/Units Urine Color Yellow Yellow Urine Clarity Turbid H Clear Urine pH 6.5 5.0-9.0 Urine Specific [place] 1.013 1.001-1.035 Urine Protein Negative Negative Urine Ketones 1+ H Negative Urine Blood 1+ H Negative /uL Urine Nitrite Negative Negative Urine Bilirubin Negative Negative Urine Urobilinogen Normal Negative mg/dL Urine Leukocyte Esterase 3+ Negative /uL Urine RBC 1 0 - 4 /hpf Urine Microscopic WBC 13 H 0-5 /HPF Urine Squamous Epithelial Cells Mod <5 /hpf Urine Bacteria Few H None Seen /hpf Urine Yeast (Budding) Occasional None Seen /hpf Urine Glucose Normal Normal mg/dL White Blood Count 8.7 4.4-10.8 10^3/uL Red Blood Count 4.96 4.0-5.20 10^6/uL Hemoglobin 14.8 12.2-16.2 g/dL Hematocrit 43.0 36.0-46.0 % Mean Corpuscular Volume 86.7 80.0-100.0 fL Mean Corpuscular Hemoglobin 29.9 28.0-32.0 pg Mean Corpuscular Hemoglobin Concent 34.5 32.0-36.0 g/dL Red Cell Distribution Width 16.4 H 11.8-14.3 % Platelet Count 387 140-450 10^3/uL Mean Platelet Volume 8.1 6.9-10.8 fL Neutrophils (%) (Auto) 72.2 37.0-80.0 % Lymphocytes (%) (Auto) 22.0 10.0-50.0 % Monocytes (%) (Auto) 4.1 0.0-12.0 % Eosinophils (%) (Auto) 1.4 0.0-7.0 % Basophils (%) (Auto) 0.3 0.0-2.0 % Neutrophils # (Auto) 6.3 1.6-8.6 10 ^3/uL Lymphocytes # (Auto) 1.9 0.4-5.4 10 ^3/uL Monocytes # (Auto) 0.4 0-1.3 10 ^3/uL Eosinophils # (Auto) 0.1 0-0.8 10 ^3/uL Basophils # (Auto) 0 0-0.2 10 ^3/uL Nucleated Red Blood Cells 0.1 % Sodium Level 140 136-145 mmol/L Potassium Level 3.5 3.5-5.1 mmol/L Chloride Level 107 98-107 mmol/L Carbon Dioxide Level 23 20-31 mmol/L Anion Gap 10 5-15 Blood Urea Nitrogen 11 9-23 mg/dL Creatinine 0.93 0.550-1.02 mg/dL Glomerular Filtration Rate Calc 77 >90 mL/min BUN/Creatinine Ratio 11.8 10.0-20.0 Serum Glucose 115 H 74-106 mg/dL Calcium Level 9.0 8.7-10.4 mg/dL Total Bilirubin 0.6 0.2-1.0 mg/dL Aspartate Amino Transferase (AST) 15 13-40 U/L Alanine Aminotransferase (ALT) < 9 7-40 U/L Alkaline Phosphatase 103 46-116 U/L Total Protein 7.5 5.7-8.2 g/dL Albumin 4.4 3.2-4.8 g/dL Lipase 40 12-53 U/L Assessment/Plan Assessment/Plan 45 yr old female here for right flank pain and symptoms like pyelonephritis acute Renal Colic due to Nephrolithiasis found on ct scan ordered IV fluids for hydration Pain management: IV ketorolac prn pain Antiemetics: Continue Zofran PRN ordered Tamsulosin 0.4 mg daily to facilitate stone passage Monitor urine output Urology follow-up for scheduled lithotripsy on 03/10/2025 Educate patient on stone passage signs and when to seek urgent care acute Pyelonephritis ua with bacteria and blood ordered ceftriaxone for now ordered repeat cultures fu results Suspected Obstructive Uropathy without Hydronephrosis Monitor renal function (daily BMP) Watch for signs of infection or worsening obstruction acute Abdominal Pain, Unspecified Pain control as above Monitor for evolving symptoms Chronic Problem List: Hypertension Resume home antihypertensive regimen History of Kidney Stones, recurrent FEN / Prophylaxis (PPx): Fluids/Electrolytes/Nutrition (FEN): IV Normal Saline for hydration Regular diet as tolerated DVT Prophylaxis: Sequential compression devices (SCDs) while inpatient GI Prophylaxis: no gi ppx since no hx of gerds or gi bleed Disposition: Admit to medicine for pain control, monitoring, and optimization prior to urology procedure. Reassess daily for pain control, renal function, and infection signs. Plan discussed with: Patient Date of Service: Feb 19, 2025 Billing Provider: PJ MART DNP Common Visit Codes: [id number] INP/OBS CARE (HIGH) PJ MART DNP Feb 19, 2025 07:07
[2025-02-19] MEDS ORDERED: NITROGLYCERIN 0.4 MG SL TAB SL PRN (08:00)
[2025-02-19] MEDS ORDERED: ONDANSETRON HCL 4 MG/2 ML VIAL IV PRN (08:00)
[2025-02-19] MEDS ORDERED: DOCUSATE SOD 100 MG CAP PO PRN (08:00)
[2025-02-19] MEDS: ONDANSETRON ODT 4 MG TAB PO ONE (08:04)
[2025-02-19] MEDS: cefTRIAXone 1GM/50ML D5W 50 ML IV ONE ×2 (08:04→08:16)
[2025-02-19] MEDS: KETOROLAC TROMETH 30 MG/ML 1ML VIAL IM ONE (08:06)
[2025-02-19] MEDS: HYDROmorphone HCL 2 MG/ML VL/or syr IM ONE (08:06)
[2025-02-19] MEDS: TAMSULOSIN HYDROCHLORIDE 0.4 MG CAP PO ONE (08:17)
[2025-02-19 08:19] VITALS: PULSE 65; RESP 20; O2SAT 98
[2025-02-19] MEDS: SODIUM CHLORIDE 0.9% 1,000 ML IV SCH (08:46)
[2025-02-19 08:50] VITALS: BP 141/69; PULSE 61; RESP 24; TEMP 98; O2SAT 97
[2025-02-19 09:00] VITALS: BP 118/77; PULSE 80; RESP 20; TEMP 97.7; O2SAT 98
[2025-02-19 13:00] VITALS: BP 148/84; PULSE 61; RESP 18; TEMP 97.7; O2SAT 100
[2025-02-19] MEDS ORDERED: TAMS0.4C39 PO (14:14)
[2025-02-19] MEDS ORDERED: HYDR1TAB97 PO (14:14)
[2025-02-19] MEDS ORDERED: LEVO25TA6 PO (14:14)
[2025-02-19] MEDS ORDERED: AMLO1TAB23 PO (14:15)
[2025-02-19] MEDS ORDERED: LEVO200T7 PO (14:15)
[2025-02-19] MEDS ORDERED: LOSA100T25 PO (14:15)
[2025-02-19 17:00] VITALS: BP 161/86; PULSE 76; RESP 20; TEMP 76; O2SAT 95
[2025-02-19] MEDS: KETOROLAC TROMETH 30 MG/ML 1ML VIAL IV PRN (18:44)
[2025-02-19 21:00] VITALS: BP 124/58; PULSE 74; RESP 18; TEMP 98.4; O2SAT 96
[2025-02-20 01:00] VITALS: BP 139/79; PULSE 75; RESP 18; TEMP 97.7; O2SAT 95
[2025-02-20 05:00] VITALS: BP 141/78; PULSE 71; RESP 18; TEMP 97.8; O2SAT 95
[2025-02-20 07:14] LABS: Basophils # (auto) 0 10 ^3/uL (0-0.2); Basophils % (auto) 0.5 % (0.0-2.0); Eosinophils # (auto) 0.1 10 ^3/uL (0-0.8); Hematocrit 38.7 % (36.0-46.0); Hemoglobin 12.9 g/dL (12.2-16.2); Lymphocytes # (auto) 1.9 10 ^3/uL (0.4-5.4); Lymphocytes % (auto) 22.8 % (10.0-50.0); Mean Corpuscular Hemoglobin 29.6 pg (28.0-32.0); Mean Corpuscular Hgb Conc. 33.4 g/dL (32.0-36.0); Mean Corpuscular Volume 88.5 fL (80.0-100.0); Monocytes # (auto) 0.3 10 ^3/uL (0-1.3); Neutrophils % (auto) 71.7 % (37.0-80.0); Nucleated Red Blood Cells % 0.1 %; Platelet Count (auto) 314 10^3/uL (140-450); Red Blood Cells 4.37 10^6/uL (4.0-5.20); Red Cell Distribution Width 16.8 % (11.8-14.3); White Blood Cell 8.3 10^3/uL (4.4-10.8)
[2025-02-20 07:17] LABS: Alkaline Phosphatase 90 U/L (46-116); Anion Gap 11 (5-15); BUN/Creatinine Ratio 12.6 (10.0-20.0); Blood Urea Nitrogen 11 mg/dL (9-23); Carbon Dioxide 21 mmol/L (20-31); Glucose 98 mg/dL (74-106); Sodium 143 mmol/L (136-145); Total Protein 6.4 g/dL (5.7-8.2)
[2025-02-20 07:18] LABS: Albumin 3.7 g/dL (3.2-4.8); Bilirubin, Total 0.5 mg/dL (0.2-1.0)
[2025-02-20 07:21] LABS: Alanine Aminotransferase < 9 U/L (7-40); Aspartate Aminotransferase 11 U/L (13-40); Calcium 8.5 mg/dL (8.7-10.4); Chloride 111 mmol/L (98-107); Potassium 3.4 mmol/L (3.5-5.1)
[2025-02-20] MEDS: cefTRIAXone 1GM/50ML D5W 50 ML IV SCH (08:49)
[2025-02-20 09:00] VITALS: BP 150/79; PULSE 68; RESP 20; TEMP 98; O2SAT 93
[2025-02-20 13:00] VITALS: BP_SYST 143; BP_SYST 98; BP_DIAS 50; BP_DIAS 71; PULSE 134; PULSE 70; RESP 20; RESP 24; TEMP 97.5; TEMP 98.4; O2SAT 90; O2SAT 98
[2025-02-20 17:00] VITALS: BP_SYST 135; BP_SYST 146; BP_DIAS 69; BP_DIAS 91; PULSE 65; PULSE 79; RESP 18; RESP 20; TEMP 98.1; TEMP 98.7; O2SAT 95; O2SAT 97
[2025-02-20] MEDS: TAMSULOSIN HYDROCHLORIDE 0.4 MG CAP PO SCH (17:30)
[2025-02-20 21:00] VITALS: BP 139/58; PULSE 68; RESP 20; TEMP 98.4; O2SAT 96
--- NOTE | 2025-02-20 22:06 | DVHPN2 ---
Subjective The patient is seen and examined at bedside. Complain of flank pain but denied hematuria. No fever or chills. Reviewed: Care Plan, H&P, Labs, Medications, Previous Orders, Radiology Changes from previous H/P or p: No Changes Eyes: No Pain, No Vision change, No Conjunctivae inflammation, No Eyelid inflammation, No Other, No Redness ENT: No Ear pain, No Ear discharge, No Nose pain, No Nose discharge, No Nose congestion, No Mouth pain, No Mouth swelling, No Throat pain, No Throat swelling, No Other Cardiovascular: No Chest Pain, No Palpitations, No Orthopnea, No Paroxysmal Noc. Dyspnea, No Edema, No Lt Headedness, No Other Respiratory: No Cough, No Dry, No Shortness of breath, No SOB with excertion, No Wheezing, No Hemoptysis, No Pleuritic Pain, No Sputum, No Other Gastrointestinal: Nausea, Vomiting, Abdominal Pain; No Diarrhea, No Constipation, No Melena, No Hematochezia, No Other Genitourinary: No Dysuria, No Frequency, No Incontinence, No Hematuria, No Retention, No Other Musculoskeletal: No other, No neck pain, No shoulder pain, No arm pain, No back pain, No hand pain, No leg pain, No foot pain Skin: No Rash, No Lesions, No Jaundice, No Bruising, No Other Objective Vitals Vital Signs Date Time Temp Pulse Resp B/P (MAP) Pulse Ox O2 Delivery O2 Flow Rate FiO2 02/20/25 17:00 98.7 65 20 146/69 (94) 97 98.7 02/20/25 08:00 Room Air* 0 21 Intake/Output Intake and Output 02/20/25 07:00 Intake Total 2540 ml Output Total 700 ml Balance 1840 ml Intake Oral 0 ml IV Total 2540 ml Output Urine Total 700 ml General Appearance: Alert, Oriented X3, Cooperative, No acute distress HEENT: Atraumatic, PERRLA, EOMI, Mucous membr. moist/pink Neck: Supple Lungs: Clear to auscultation, Normal air movement Cardiovascular: Regular rate, Normal S1, Normal S2, No murmurs, Gallops, Rubs Abdomen: Normal bowel sounds, Soft, No tenderness Neuro: Cranial nerves 3-12 NL Psych/Mental Status: Mental status NL Medications Current Medications Medications Dose Ordered Sig/Rafael Route Start Time Stop Time Status Last Admin Dose Admin Sodium Chloride 1,000 ml @ 120 mls/hr Q8H20M IV 02/19/25 08:00 02/20/25 04:41 120 MLS/HR Ondansetron HCl 4 mg Q4HP PRN IV 02/19/25 08:00 Docusate Sodium 100 mg BIDPRN PRN PO 02/19/25 08:00 Morphine Sulfate 2 mg Q4HPRN PRN IV 02/19/25 08:00 Nitroglycerin 0.4 mg Q5MINP PRN SL 02/19/25 08:00 Ketorolac Tromethamine 15 mg Q6HPRN PRN IV 02/19/25 08:00 02/24/25 07:59 02/20/25 01:27 15 MG Tamsulosin HCl 0.4 mg QPM PO 02/20/25 18:00 02/20/25 17:30 0.4 MG Ceftriaxone Sodium 50 ml @ 100 mls/hr DAILY@09 IV 02/20/25 09:00 02/20/25 08:49 100 MLS/HR Amlodipine Besylate 10 mg DAILY PO 02/21/25 10:00 Levothyroxine Sodium 200 mcg QAM@0600 PO 02/21/25 06:00 Losartan Potassium 100 mg DAILY PO 02/21/25 10:00 Hydrochlorothiazide 25 mg DAILY PO 02/21/25 10:00 Levothyroxine Sodium 25 mcg QAM@0600 PO 02/21/25 06:00 Laboratory Results Laboratory Tests 02/20/25 05:23 Chemistry Test 02/20/25 05:23 Albumin 3.7 g/dL (3.2-4.8) Calcium Level 8.5 mg/dL (8.7-10.4) L Total Protein 6.4 g/dL (5.7-8.2) LFT Test 02/20/25 05:23 Alanine Aminotransferase (ALT) < 9 U/L (7-40) Alkaline Phosphatase 90 U/L (46-116) Aspartate Amino Transferase (AST) 11 U/L (13-40) L Total Bilirubin 0.5 mg/dL (0.2-1.0) Urinalysis Test 02/19/25 06:25 Urine Color Yellow (Yellow) Urine Clarity Turbid (Clear) H Urine pH 6.5 (5.0-9.0) Urine Specific [place] 1.013 (1.001-1.035) Urine Protein Negative (Negative) Urine Ketones 1+ (Negative) H Urine Blood 1+ /uL (Negative) H Urine Nitrite Negative (Negative) Urine Bilirubin Negative (Negative) Urine Urobilinogen Normal mg/dL (Negative) Urine Leukocyte Esterase 3+ /uL (Negative) Urine RBC 1 /hpf (0 - 4) Urine Microscopic WBC 13 /HPF (0-5) H Urine Squamous Epithelial Cells Mod /hpf (<5) Urine Bacteria Few /hpf (None Seen) H Urine Yeast (Budding) Occasional /hpf (None Urine Glucose Normal mg/dL (Normal) Microbiology Microbiology Date/Time Source Procedure Growth Status 02/19/25 06:25 Voided Urine Urine Culture - Preliminary Resulted Labs and/or images reviewed: Labs reviewed by me Assessment/Plan Assessment/Plan Acute Renal Colic due to Nephrolithiasis Acute Pyelonephritis Suspected Obstructive Uropathy without Hydronephrosis Acute Abdominal Pain, secondary to renal colic Continuing current management. Continuing with IV antibiotic. Continuing with IV pain medication. Continuing with IV fluid. Continuing with Flomax. We will follow up with culture. Patient is supposed to have a lithotripsy as outpatient in February with her urologist. This medical document was created using an electronic medical record system with [employer] direct computerized dictation system. Although this document has been carefully reviewed, there may still be some phonetic and typographical errors. These areas are purely typographical due to imperfections of the software programs, and do not reflect any compromise in the patient's medical care. Plan discussed with: Patient, Spouse My Orders Orders - TONG HINDS MD Procedure Category Date Status Time Amlodipine Tablet PHA 02/21/25 In Process (Norvasc Tablet) 10:00 Levothyroxine Tablet PHA 02/21/25 In Process (Synthroid Tablet) 06:00 Losartan Tablet PHA 02/21/25 In Process (Cozaar Tablet) 10:00 Hydrochlorothiazide PHA 02/21/25 In Process Tablet (Hydrochlorot 10:00 Levothyroxine Tablet PHA 02/21/25 In Process (Synthroid Tablet) 06:00 Date of Service: Feb 20, 2025 Billing Provider: TONG HINDS MD Common Visit Codes: [id number] INP/OBS CARE(HIGH) TONG HINDS MD Feb 20, 2025 22:06
[2025-02-21] MEDS: MORPHINE SULFATE INJ 2 MG/ml SYRG IV PRN (00:35)
[2025-02-21 01:00] VITALS: BP 160/80; PULSE 64; RESP 20; TEMP 99; O2SAT 96
[2025-02-21 05:00] VITALS: BP 153/80; PULSE 67; RESP 20; TEMP 98.3; O2SAT 97
[2025-02-21] MEDS: LEVOTHYROXINE SODIUM 100 MCG TAB PO SCH (06:32)
[2025-02-21] MEDS: LEVOTHYROXINE SODIUM 25 MCG TAB PO SCH (06:32)
[2025-02-21 07:12] LABS: Basophils # (auto) 0 10 ^3/uL (0-0.2); Basophils % (auto) 0.4 % (0.0-2.0); Eosinophils # (auto) 0.1 10 ^3/uL (0-0.8); Eosinophils % (auto) 1.5 % (0.0-7.0); Hematocrit 41.2 % (36.0-46.0); Hemoglobin 14.3 g/dL (12.2-16.2); Lymphocytes # (auto) 2.4 10 ^3/uL (0.4-5.4); Lymphocytes % (auto) 24.8 % (10.0-50.0); Mean Corpuscular Hemoglobin 30.1 pg (28.0-32.0); Mean Corpuscular Hgb Conc. 34.6 g/dL (32.0-36.0); Monocytes # (auto) 0.4 10 ^3/uL (0-1.3); Monocytes % (auto) 4.5 % (0.0-12.0); Neutrophils # (auto) 6.6 10 ^3/uL (1.6-8.6); Neutrophils % (auto) 68.8 % (37.0-80.0); Nucleated Red Blood Cells % 0.1 %; Platelet Count (auto) 337 10^3/uL (140-450); Red Blood Cells 4.74 10^6/uL (4.0-5.20); Red Cell Distribution Width 16.7 % (11.8-14.3); White Blood Cell 9.6 10^3/uL (4.4-10.8)
[2025-02-21 07:24] LABS: Potassium 3.7 mmol/L (3.5-5.1); Sodium 142 mmol/L (136-145)
[2025-02-21 07:25] LABS: Anion Gap 10 (5-15); Carbon Dioxide 22 mmol/L (20-31)
[2025-02-21 07:26] LABS: Calcium 8.9 mg/dL (8.7-10.4)
[2025-02-21 07:27] LABS: Chloride 110 mmol/L (98-107)
[2025-02-21 07:30] LABS: BUN/Creatinine Ratio 10.1 (10.0-20.0); Blood Urea Nitrogen 9 mg/dL (9-23); Glucose 96 mg/dL (74-106)
[2025-02-21 09:00] VITALS: BP 147/83; PULSE 67; RESP 18; TEMP 98.7; O2SAT 97
[2025-02-21] MEDS: hydroCHLOROthiazide 25 MG TAB PO SCH (09:06)
[2025-02-21] MEDS: LOSARTAN POTASSIUM 50 MG TAB PO SCH (09:06)
[2025-02-21] MEDS: amLODIPine BESYLATE 5 MG TAB PO SCH (09:07)
--- NOTE | 2025-02-21 11:30 | DVHPN2 ---
Subjective The patient is seen and examined at bedside. Complain of flank pain but denied hematuria. No fever or chills. Reviewed: Care Plan, H&P, Labs, Medications, Previous Orders, Radiology Eyes: No Pain, No Vision change, No Conjunctivae inflammation, No Eyelid inflammation, No Other, No Redness ENT: No Ear pain, No Ear discharge, No Nose pain, No Nose discharge, No Nose congestion, No Mouth pain, No Mouth swelling, No Throat pain, No Throat swelling, No Other Cardiovascular: No Chest Pain, No Palpitations, No Orthopnea, No Paroxysmal Noc. Dyspnea, No Edema, No Lt Headedness, No Other Respiratory: No Cough, No Dry, No Shortness of breath, No SOB with excertion, No Wheezing, No Hemoptysis, No Pleuritic Pain, No Sputum, No Other Gastrointestinal: Nausea, Vomiting, Abdominal Pain; No Diarrhea, No Constipation, No Melena, No Hematochezia, No Other Genitourinary: No Dysuria, No Frequency, No Incontinence, No Hematuria, No Retention, No Other Musculoskeletal: No other, No neck pain, No shoulder pain, No arm pain, No back pain, No hand pain, No leg pain, No foot pain Skin: No Rash, No Lesions, No Jaundice, No Bruising, No Other Objective Vitals Vital Signs Date Time Temp Pulse Resp B/P (MAP) Pulse Ox O2 Delivery O2 Flow Rate FiO2 02/21/25 09:07 147/83 02/21/25 09:00 98.7 67 18 97 98.7 02/20/25 20:00 Room Air* 0 21 Intake/Output Intake and Output 02/21/25 07:00 Intake Total 2050 ml Balance 2050 ml Intake Oral 2000 ml IV Total 50 ml # Voids 3 # Bowel Movements 4 General Appearance: Alert, Oriented X3, Cooperative, No acute distress HEENT: Atraumatic, PERRLA, EOMI, Mucous membr. moist/pink Neck: Supple Lungs: Clear to auscultation, Normal air movement Cardiovascular: Regular rate, Normal S1, Normal S2, No murmurs, Gallops, Rubs Abdomen: Normal bowel sounds, Soft, No tenderness Neuro: Cranial nerves 3-12 NL Psych/Mental Status: Mental status NL Medications Current Medications Medications Dose Ordered Sig/Rafael Route Start Time Stop Time Status Last Admin Dose Admin Sodium Chloride 1,000 ml @ 120 mls/hr Q8H20M IV 02/19/25 08:00 02/21/25 09:05 120 MLS/HR Ondansetron HCl 4 mg Q4HP PRN IV 02/19/25 08:00 Docusate Sodium 100 mg BIDPRN PRN PO 02/19/25 08:00 Morphine Sulfate 2 mg Q4HPRN PRN IV 02/19/25 08:00 02/21/25 00:35 2 MG Nitroglycerin 0.4 mg Q5MINP PRN SL 02/19/25 08:00 Ketorolac Tromethamine 15 mg Q6HPRN PRN IV 02/19/25 08:00 02/24/25 07:59 02/20/25 01:27 15 MG Tamsulosin HCl 0.4 mg QPM PO 02/20/25 18:00 02/20/25 17:30 0.4 MG Ceftriaxone Sodium 50 ml @ 100 mls/hr DAILY@09 IV 02/20/25 09:00 02/21/25 10:19 100 MLS/HR Amlodipine Besylate 10 mg DAILY PO 02/21/25 10:00 02/21/25 09:07 10 MG Levothyroxine Sodium 200 mcg QAM@0600 PO 02/21/25 06:00 02/21/25 06:32 200 MCG Losartan Potassium 100 mg DAILY PO 02/21/25 10:00 02/21/25 09:06 100 MG Hydrochlorothiazide 25 mg DAILY PO 02/21/25 10:00 02/21/25 09:06 25 MG Levothyroxine Sodium 25 mcg QAM@0600 PO 02/21/25 06:00 02/21/25 06:32 25 MCG Laboratory Results Laboratory Tests 02/21/25 06:50 Chemistry Test 02/21/25 06:50 Calcium Level 8.9 mg/dL (8.7-10.4) Urinalysis Test 02/19/25 06:25 Urine Color Yellow (Yellow) Urine Clarity Turbid (Clear) H Urine pH 6.5 (5.0-9.0) Urine Specific [place] 1.013 (1.001-1.035) Urine Protein Negative (Negative) Urine Ketones 1+ (Negative) H Urine Blood 1+ /uL (Negative) H Urine Nitrite Negative (Negative) Urine Bilirubin Negative (Negative) Urine Urobilinogen Normal mg/dL (Negative) Urine Leukocyte Esterase 3+ /uL (Negative) Urine RBC 1 /hpf (0 - 4) Urine Microscopic WBC 13 /HPF (0-5) H Urine Squamous Epithelial Cells Mod /hpf (<5) Urine Bacteria Few /hpf (None Seen) H Urine Yeast (Budding) Occasional /hpf (None Urine Glucose Normal mg/dL (Normal) Microbiology Microbiology Date/Time Source Procedure Growth Status 02/19/25 06:25 Voided Urine Urine Culture - Final Complete Assessment/Plan Assessment/Plan Acute Renal Colic due to Nephrolithiasis Acute Pyelonephritis Suspected Obstructive Uropathy without Hydronephrosis Acute Abdominal Pain, secondary to renal colic Continuing current management. Continuing with IV antibiotic. Continuing with IV pain medication. Continuing with IV fluid. Continuing with Flomax. We will follow up with culture. Patient is supposed to have a lithotripsy as outpatient in February with her urologist. This medical document was created using an electronic medical record system with [employer] computerized dictation system. Although this document has been carefully reviewed, there may still be some phonetic and typographical errors. These areas are purely typographical due to imperfections of the software programs, and do not reflect any compromise in the patient's medical care. My Orders Orders - TONG HINDS MD Procedure Category Date Status Time Amlodipine Tablet PHA 02/21/25 In Process (Norvasc Tablet) 10:00 Levothyroxine Tablet PHA 02/21/25 In Process (Synthroid Tablet) 06:00 Losartan Tablet PHA 02/21/25 In Process (Cozaar Tablet) 10:00 Hydrochlorothiazide PHA 02/21/25 In Process Tablet (Hydrochlorot 10:00 Levothyroxine Tablet PHA 02/21/25 In Process (Synthroid Tablet) 06:00 TONG HINDS MD Feb 21, 2025 11:30
[2025-02-21 13:00] VITALS: BP 145/88; PULSE 70; RESP 18; TEMP 98.7; O2SAT 97
[2025-02-21 17:00] VITALS: BP 146/88; PULSE 73; RESP 18; TEMP 98.7; O2SAT 96
[2025-02-21 21:00] VITALS: BP 142/86; PULSE 65; RESP 19; TEMP 98.7; O2SAT 95
[2025-02-22 01:00] VITALS: BP 122/57; PULSE 66; RESP 16; TEMP 98.6; O2SAT 95
[2025-02-22 05:00] VITALS: BP 118/49; PULSE 71; RESP 19; TEMP 98; O2SAT 98
[2025-02-22 09:00] VITALS: BP 135/76; PULSE 69; RESP 19; TEMP 98.9; O2SAT 94
[2025-02-22] MEDS ORDERED: LEVO500T91 PO (12:50)
--- NOTE | 2025-02-22 12:52 | DVHDS2 ---
Discharge Summary Date of Admission Feb 19, 2025 at 07:48 Date of Discharge: Feb 22, 2025 Labs/Diagnostic Data: Laboratory Results Test 02/21/25 06:50 02/20/25 05:23 02/19/25 06:25 02/19/25 05:42 White Blood Count 9.6 10^3/uL (4.4-10.8) Red Blood Count 4.74 10^6/uL (4.0-5.20) Hemoglobin 14.3 g/dL (12.2-16.2) Hematocrit 41.2 % (36.0-46.0) Mean Corpuscular Volume 87.0 fL (80.0-100.0) Mean Corpuscular Hemoglobin 30.1 pg (28.0-32.0) Mean Corpuscular Hemoglobin Concent 34.6 g/dL (32.0-36.0) Red Cell Distribution Width 16.7 % (11.8-14.3) Platelet Count 337 10^3/uL (140-450) Mean Platelet Volume 7.8 fL (6.9-10.8) Neutrophils (%) (Auto) 68.8 % (37.0-80.0) Lymphocytes (%) (Auto) 24.8 % (10.0-50.0) Monocytes (%) (Auto) 4.5 % (0.0-12.0) Eosinophils (%) (Auto) 1.5 % (0.0-7.0) Basophils (%) (Auto) 0.4 % (0.0-2.0) Neutrophils # (Auto) 6.6 10 ^3/uL (1.6-8.6) Lymphocytes # (Auto) 2.4 10 ^3/uL (0.4-5.4) Monocytes # (Auto) 0.4 10 ^3/uL (0-1.3) Eosinophils # (Auto) 0.1 10 ^3/uL (0-0.8) Basophils # (Auto) 0 10 ^3/uL (0-0.2) Nucleated Red Blood Cells 0.1 % Sodium Level 142 mmol/L (136-145) Potassium Level 3.7 mmol/L (3.5-5.1) Chloride Level 110 mmol/L (98-107) Carbon Dioxide Level 22 mmol/L (20-31) Anion Gap 10 (5-15) Blood Urea Nitrogen 9 mg/dL (9-23) Creatinine 0.89 mg/dL (0.550-1.02) Glomerular Filtration Rate Calc 81 mL/min (>90) BUN/Creatinine Ratio 10.1 (10.0-20.0) Serum Glucose 96 mg/dL (74-106) Calcium Level 8.9 mg/dL (8.7-10.4) Total Bilirubin 0.5 mg/dL (0.2-1.0) Aspartate Amino Transferase (AST) 11 U/L (13-40) Alanine Aminotransferase (ALT) < 9 U/L (7-40) Alkaline Phosphatase 90 U/L (46-116) Total Protein 6.4 g/dL (5.7-8.2) Albumin 3.7 g/dL (3.2-4.8) Urine Color Yellow (Yellow) Urine Clarity Turbid (Clear) Urine pH 6.5 (5.0-9.0) Urine Specific [place] 1.013 (1.001-1.035) Urine Protein Negative (Negative) Urine Ketones 1+ (Negative) Urine Blood 1+ /uL (Negative) Urine Nitrite Negative (Negative) Urine Bilirubin Negative (Negative) Urine Urobilinogen Normal mg/dL (Negative) Urine Leukocyte Esterase 3+ /uL (Negative) Urine RBC 1 /hpf (0 - 4) Urine Microscopic WBC 13 /HPF (0-5) Urine Squamous Epithelial Cells Mod /hpf (<5) Urine Bacteria Few /hpf (None Seen) Urine Yeast (Budding) Occasional /hpf (None Urine Glucose Normal mg/dL (Normal) Lipase 40 U/L (12-53) Other Laboratory Tests 02/21/25 06:50 Final Diagnosis/Problems List PYELONEPHRITIS Discharge Disposition: Home Discharge Instruct/Medications Diet: Consistent carbohydrate Activity: No Restrictions, As Tolerated Follow Up/Referral: PCP 1-2 WEEKS UROLOGY 03/10/25 FOR LITHROTRIPSY Discharge Statement: "Patient was advised to return to the ER or call 911 if any headaches, dizziness, shortness of breath, chest pain, abdominal pain, bleeding, fevers, or worsening of medical condition. Patient was counseled about treatment plan, medications, possible side effects, patientverbalized understanding. All questions were answered to the best of my ability. This discharge took greater then 30 minutes in planning, reviewing documentation, counseling the patient, and discussing with other team members." ASSESSMENT ASSESSMENT Assessment PYELONEPHRITIS TONG HINDS MD Feb 22, 2025 12:52
[2025-02-22 13:00] VITALS: BP 143/59; PULSE 67; RESP 19; TEMP 99.1; O2SAT 97
[2025-02-22 14:05] VITALS: BP 135/76; TEMP 37.2
== END 2025-02-22 15:15 | disposition home or self-care (01) | DRG 690 ==
LOC: ER 04:54 → OVERFLOW 07:48 → EAST 14:34
PROVIDERS: ADMIT Internal Medicine; ATTEND Internal Medicine
DX: N10 Acute pyelonephritis (principal); N20.0 Calculus of kidney; I10 Essential (primary) hypertension; Z79.899 Other long term (current) drug therapy; Z87.442 Personal history of urinary calculi
CPT/HCPCS: 36415; 74176; 80048; 80053; 81001; 83690; 85025; 87086; 96365; 96372; 96375; 99291; G0378; J1885; Q0162

== ENCOUNTER → 2025-03-10 | Day surgery (SDC) | payer BC, MEDICAID ==
[2025-03-09 12:48] LABS: Basophils # (auto) 0.1 10 ^3/uL (0-0.2); Basophils % (auto) 0.8 % (0.0-2.0); Eosinophils # (auto) 0.1 10 ^3/uL (0-0.8); Eosinophils % (auto) 1.7 % (0.0-7.0); Hematocrit 48.2 % (36.0-46.0); Hemoglobin 16.6 g/dL (12.2-16.2); Lymphocytes # (auto) 2.5 10 ^3/uL (0.4-5.4); Lymphocytes % (auto) 29.8 % (10.0-50.0); Mean Corpuscular Hemoglobin 29.9 pg (28.0-32.0); Mean Corpuscular Hgb Conc. 34.4 g/dL (32.0-36.0); Mean Corpuscular Volume 86.9 fL (80.0-100.0); Monocytes # (auto) 0.5 10 ^3/uL (0-1.3); Neutrophils # (auto) 5.1 10 ^3/uL (1.6-8.6); Neutrophils % (auto) 61.7 % (37.0-80.0); Nucleated Red Blood Cells % 0.1 %; Platelet Count (auto) 313 10^3/uL (140-450); Red Blood Cells 5.55 10^6/uL (4.0-5.20); Red Cell Distribution Width 16.2 % (11.8-14.3); White Blood Cell 8.3 10^3/uL (4.4-10.8)
[2025-03-09 12:58] LABS: INR 0.99 (0.9-1.15); Partial Thromboplastin Time 24.8 SEC (24.5-34.5); Prothrombin Time 10.5 sec (9.3-11.8)
[2025-03-09 13:10] LABS: Alanine Aminotransferase 15 U/L (7-40); Albumin 4.7 g/dL (3.2-4.8); Alkaline Phosphatase 117 U/L (46-116); Anion Gap 12 (5-15); Aspartate Aminotransferase 15 U/L (13-40); BUN/Creatinine Ratio 15.7 (10.0-20.0); Blood Urea Nitrogen 13 mg/dL (9-23); Calcium 9.7 mg/dL (8.7-10.4); Carbon Dioxide 24 mmol/L (20-31); Chloride 105 mmol/L (98-107); Glucose 88 mg/dL (74-106); Potassium 3.4 mmol/L (3.5-5.1); Sodium 141 mmol/L (136-145)
[2025-03-09 13:11] LABS: Bilirubin, Total 0.5 mg/dL (0.2-1.0)
[~2025-03-10] VITALS: Ht 160 cm; Wt 122.9 kg
[~2025-03-10] MED LIST changes: +ACETAMINOPHEN IV 1000 MG/100ML (10MG/ML) IV PRN; +AMLO1TAB23 PO; +CALC-437 OR; +CHOL200031 PO; +HYDROmorphone HCL 2 MG/ML VL/or syr IV PRN; +IOHEXOL 180 MG/ML 20ML VIAL IJ ONE; +IOHEXOL 300 MG/ML 100ML BOTTLE IJ ONE; +LEVO200T7 PO; +LEVO25TA6 PO; +LOSA100T25 PO; +MEPERIDINE HCL (25 MG/ML) 1ML VIAL IV PRN; +MULT-777 OR; -NITR-87 PO; +ONDANSETRON HCL 4 MG/2 ML VIAL ONE; +POTA-220 PO; +PROPOFOL 10 MG/ML 20 ML IV ONE; +TAMS0.4C39 PO; +fentaNYL CITRATE 100 MCG/2 ML VL ONE
--- NOTE | 2025-03-10 08:23 | DVHNC2 ---
Procedure - OPERATIVE REPORT Pre-op. Diagnosis: Renal Stone Post-op. Diagnosis: Same as pre-op diagnosis Operation: Extracorporeal Shockwave Lithotripsy Anesthesia: General Indications: Patient was found to have symptomatic Urolithiasis. Patient is here to undergo ESWL therapy. Informed Consent: The procedure was explained to the patient. It's risks include but not limited to infection, bleeding, and damage to the kidney. Patient fully understood and signed the consent. Other options such as watchful waiting, Ureteroscopy, Percutaneous surgery and open surgery were also discussed. Details of Procedure: Under satisfactory anesthesia, the patient was positioned on the lithotripsy table. Using fluoroscopy the stone was localized. Starting at low energy levels, shockwave treatment was commenced. The energy level was gradually increased and stone was fragmented. Once the treatment was completed, patient was then taken off the lithotripsy table and sent to recovery room in stable condition. Specimens: None Complications: None Findings: Stone Laterality: Right Stone Location: lower pole 4 mm stone Shocks Delivered: 2400 [employer] settin Fragmentation Quality: Well YOANDY SANTILLAN MD March 10, 2025 08:23
--- NOTE | 2025-03-10 08:42 | DVHDS2 ---
New Physician D'charge PN Admitting Diagnosis Admitting Diagnosis Right lower pole renal stone, 4 mm Discharge Diagnosis same Operations or Procedures Right ESWL Reason(s) For Hospitalization Surgery Treatment Plan Discharge Condition of Discharge Good Disposition Home Discharge Instructions Diet: Regular Activity: Light activity Activity comment: as tolerated Medications: given Follow Up Care Follow Up/Referral: 2 weeks with Renal US Discharge Statement: "Patient was advised to return to the ER or call 911 if any headaches, dizziness, shortness of breath, chest pain, abdominal pain, bleeding, fevers, or worsening of medical condition. Patient was counseled about treatment plan, medications, possible side effects, patientverbalized understanding. All questions were answered to the best of my ability. This discharge took greater then 30 minutes in planning, reviewing documentation, counseling the patient, and discussing with other team members." YOANDY SANTILLAN MD March 10, 2025 08:42
[2025-03-10 09:42] VITALS: PULSE 89; RESP 20; TEMP 97.6; O2SAT 94
[2025-03-10 10:42] VITALS: BP 141/76; PULSE 69; RESP 20; O2SAT 96
== END | disposition home or self-care (01) ==
LOC: SUR 07:36
PROVIDERS: ATTEND Urology
DX: N20.0 Calculus of kidney (principal); E03.9 Hypothyroidism, unspecified; I10 Essential (primary) hypertension; E66.9 Obesity, unspecified; Z68.42 Body mass index [BMI] 45.0-49.9, adult; Z79.899 Other long term (current) drug therapy; Z98.890 Other specified postprocedural states
CPT/HCPCS: 36415; 50590; 80053; 84702; 85025; 85610; 85730; A4315; A4344; C1769; J2405; J2704; J3010; J7030; Q9965; Q9967

== ENCOUNTER 2025-08-09 02:02 | Inpatient (IN) | payer BC ==
[~2025-08-09] VITALS: Ht 160 cm; Wt 125.3 kg
[~2025-08-09 02:02] MED LIST changes: -ACETAMINOPHEN IV 1000 MG/100ML (10MG/ML) IV PRN; -HYDROmorphone HCL 2 MG/ML VL/or syr IV PRN; -IOHEXOL 180 MG/ML 20ML VIAL IJ ONE; -IOHEXOL 300 MG/ML 100ML BOTTLE IJ ONE; -MEPERIDINE HCL (25 MG/ML) 1ML VIAL IV PRN; -ONDANSETRON HCL 4 MG/2 ML VIAL ONE; -PROPOFOL 10 MG/ML 20 ML IV ONE; -fentaNYL CITRATE 100 MCG/2 ML VL ONE
--- NOTE | 2025-08-09 02:37 | ED.PDOC ---
General HPI Comments 45-year-old female presented to the ER with a chief complaint of right flank pain, nausea and vomiting for the past 3 days. Her symptoms started on 08/06 with nausea and vomiting, which was nonbloody and yellowish in color, patient thought that gastroenteritis and she stated home. She started experiencing right-sided flank pain radiating to the groin, sharp, 10/10 in intensity starting associated with nausea and vomiting, chills but no fever earlier today. She does reports urinary urgency but denies frequency or hematuria, she is experiencing 2-3 episodes of loose watery stool for the past couple of days. Denies any sick contacts, denies any travel history Past medical history: history of right-sided kidney stones status post lithotripsy, cholecystectomy, thyroid resection Home medications: Losartan 100 mg, levothyroxine 25 mcg, calcium and vitamin-D Social history: Lives with , has not menstruated in the past 10 years, on Depo injections Chief Complaint: Abdominal Pain Time Seen by MD: 02:14 Primary Care Provider: jon Rodgers notes: Nurses Notes Allergies: Coded Allergies: NO KNOWN ALLERGIES (Unverified , 02/15/25) Home Meds Reported Medications Cholecalciferol (D3) 2,000 Unit Cap, PO DAILY, CAP 03/09/25 Multiple Vitamins W/ Minerals (MULTI COMPLETE) Complete Cap, 1 OR DAILY, CAP 03/09/25 Calcium W/ Vitamins D & K (CALCIUM + D) Chw, 1 OR DAILY, TAB.CHEW 03/09/25 Potassium Chloride (Klor-Con M20) 20 Meq Tab, 20 MEQ PO DAILY, TAB 03/09/25 Levothyroxine Sodium (Levothyroxine Sodium) 200 Mcg Tab, 1 TAB PO DAILY 02/19/25 Losartan Potassium & Hydrochlo (Hyzaar) 1 Tab Tab, 1 TAB PO DAILY, #30 TAB 5 Refills 02/19/25 Amlodipine Besylate (Amlodipine Besylate) 10 Mg Tab, 1 TAB PO DAILY, #30 TAB 5 Refills 02/19/25 Levothyroxine Sodium (Levothyroxine Sodium) 25 Mcg Tab, 1 TAB PO DAILY 02/19/25 Tamsulosin Hcl (Tamsulosin Hcl) 0.4 Mg Cap, 1 PO DAILY 02/19/25 Information Source: Patient Mode of Arrival: Ambulatory Past Medical History PAST MEDICAL HISTORY: HTN, Kidney Stones Surgical History: Denies all surgeries 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 Family History Family History: Reviewed,noncontributory to illness, No family hx of Cancer, No family hx of DM, No family hx of Heart earnest, No family hx of HTN, No family hx ofKidney earnest, No family hx of Liver earnest, No family hx of Lung earnest, No family hx of Stroke Social History Smoker: Non-Smoker Alcohol: Denies ETOH Use Drugs: Denies Drug Use Lives In: Home Constitutional: reports: chills EENTM: denies: blurred vision, double vision, ear bleeding, ear discharge, ear drainage, ear pain, ear ringing, eye pain, eye redness, hearing loss, mouth pain, mouth swelling, nasal discharge, nose bleeding, nose congestion, nose pain, photophobia, tearing, throat pain, throat swelling, voice changes, others Respiratory: denies: cough, hemoptysis, orthopnea, SOB at rest, shortness of breath, SOB with excertion, stridor, wheezing, others Cardiovascular: denies: chest pain, dizzy spells, diaphoresis, Dyspnea on exe rtion, edema, irregular heart beat, left arm pain, lightheadedness, palpitations, PND, syncope, others Gastrointestinal: reports: abdominal pain, diarrhea, nausea, vomiting Genitourinary: reports: urgency Neurological: denies: dizziness, fainting, headache, left sided numbness, left sided weakness, numbness, paresthesia, pre-existing deficit, right sided numbness, right sided weakness, seizure, speech problems, tingling, tremors, weakness, others Musculoskeletal: reports: back pain Integumetry: denies: bruises, change in color, change in hair/nails, dryness, laceration, lesions, lumps, rash, wounds, others Allergic/Immunocompromised: denies: Difficulty Healing, Frequent Infections, Hives, Itching, others Hematologic/Lymphatic: denies: anemia, blood clots, easy bleeding, easy bruising, swollen glands, others Endocrine: denies: excessive hunger, excessive sweating, excessive thirst, excessive urination, flushing, intolerance to cold, intolerance to heat, unexplained weight gain, unexplained weight loss, others Psychiatric: denies: anxiety, bipolar disorder, depression, hopeless, panic disorder, schizophrenia, sleepless, suicidal, others Physical Exam General Appearance: Mild Distress HEENT: Other (Dry mucous membranes) Neck: NOT DONE Respiratory: NOT DONE Cardiovascular: No Edema, No Murmur, Tachycardia Breast Exam: Deferred Gastrointestinal: Abnormal Bowel Sounds (Hypoactive bowel sounds), Tenderness (Right lower quadrant, no CVA tenderness) Genitalia: Deferred Pelvic: Deferred Rectal: Deferred Extremities: No calf tenderness, Normal capillary refill, Normal inspection, Normal range of motion, Non-tender, No pedal edema Neurologic: NOT DONE Cerebellar Function: NOT DONE Reflexes: NOT DONE Skin: Dry Lymphatic: NOT DONE Was a procedure done? Was a procedure done?: No Differential Diagnosis Kidney stone (Female): Bowel obstruction, Hepatitis, Pancreatitis, Pyelonephritis, Urinary obstruction, Urolithiasis Kidney stone (Male): Cholangitis X-Ray, Labs, Meds, VS Vital Signs Date Time Temp Pulse Resp B/P (MAP) Pulse Ox O2 Delivery O2 Flow Rate FiO2 08/09/25 05:45 68 20 92 Room Air 08/09/25 04:16 98.4 68 18 151/61 (91) 92 98.4 08/09/25 02:05 97.8 73 18 121/66 94 97.8 Lab Test 08/09/25 03:53 08/09/25 03:52 08/09/25 03:15 08/09/25 02:45 Range/Units Urine Color Yellow Yellow Urine Clarity Turbid H Clear Urine pH 6.0 5.0-9.0 Urine Specific [place] 1.025 1.001-1.035 Urine Protein 1+ H Negative Urine Ketones Trace Negative Urine Blood 2+ H Negative /uL Urine Nitrite Negative Negative Urine Bilirubin Negative Negative Urine Urobilinogen Normal Negative mg/dL Urine Leukocyte Esterase 3+ Negative /uL Urine RBC 10 0 - 4 /hpf Urine Microscopic WBC 11 H 0-5 /HPF Urine Squamous Epithelial Cells Mod <5 /hpf Urine Calcium Oxalate Crystals Mod None Seen Urine Bacteria None seen None Seen /hpf Urine Glucose Normal Normal mg/dL Urine Test Negative Negative Lactic Acid Level 1.1 0.4-2.0 mmol/L White Blood Count 9.3 4.4-10.8 10^3/uL Red Blood Count 5.15 4.0-5.20 10^6/uL Hemoglobin 15.3 12.2-16.2 g/dL Hematocrit 45.2 36.0-46.0 % Mean Corpuscular Volume 87.8 80.0-100.0 fL Mean Corpuscular Hemoglobin 29.8 28.0-32.0 pg Mean Corpuscular Hemoglobin Concent 33.9 32.0-36.0 g/dL Red Cell Distribution Width 16.1 H 11.8-14.3 % Platelet Count 303 140-450 10^3/uL Mean Platelet Volume 8.2 6.9-10.8 fL Neutrophils (%) (Auto) 80.8 H 37.0-80.0 % Lymphocytes (%) (Auto) 14.3 10.0-50.0 % Monocytes (%) (Auto) 4.1 0.0-12.0 % Eosinophils (%) (Auto) 0.5 0.0-7.0 % Basophils (%) (Auto) 0.3 0.0-2.0 % Neutrophils # (Auto) 7.5 1.6-8.6 10 ^3/uL Lymphocytes # (Auto) 1.3 0.4-5.4 10 ^3/uL Monocytes # (Auto) 0.4 0-1.3 10 ^3/uL Eosinophils # (Auto) 0.1 0-0.8 10 ^3/uL Basophils # (Auto) 0 0-0.2 10 ^3/uL Nucleated Red Blood Cells 0.0 % Sodium Level 145 136-145 mmol/L Potassium Level 3.4 L 3.5-5.1 mmol/L Chloride Level 109 H 98-107 mmol/L Carbon Dioxide Level 23 20-31 mmol/L Anion Gap 13 5-15 Blood Urea Nitrogen 12 9-23 mg/dL Creatinine 1.21 H 0.550-1.02 mg/dL Glomerular Filtration Rate Calc 56 >90 mL/min BUN/Creatinine Ratio 9.9 L 10.0-20.0 Serum Glucose 138 H 74-106 mg/dL Calcium Level 8.6 L 8.7-10.4 mg/dL Total Bilirubin 0.4 0.2-1.0 mg/dL Aspartate Amino Transferase (AST) 26 13-40 U/L Alanine Aminotransferase (ALT) 10 7-40 U/L Alkaline Phosphatase 117 H 46-116 U/L Total Protein 7.8 5.7-8.2 g/dL Albumin 4.2 3.2-4.8 g/dL Lipase 36 12-53 U/L Current Medications Medications (Trade) Dose Ordered Sig/Rafael Route Start Time Stop Time Status Last Admin Ketorolac Tromethamine (Toradol Injection) 15 mg ONCE ONCE IV 08/09/25 02:30 08/09/25 02:34 DC 08/09/25 04:10 Ondansetron HCl (Zofran) 4 mg ONCE ONCE IV 08/09/25 02:30 08/09/25 02:34 DC 08/09/25 04:10 Pantoprazole Sodium (Protonix) 40 mg ONCE ONCE IV 08/09/25 02:30 08/09/25 02:34 DC 08/09/25 04:10 Sodium Chloride 1,000 ml @ 1,000 mls/hr Q1H ONCE IV 08/09/25 04:45 08/09/25 05:44 DC 08/09/25 05:10 X-Ray, Labs, Meds, VS Comment CT abdomen imaging shows right-sided ureterolithiasis and right hydronephrosis preliminary. Pending to be read by radiologist. Images Reviewed?: Images reviewed and evaluated by me Time of 1ST Reevaluation: 05:00 Reevaluation 1ST: Improved (Pain is improved) Consultation: PCP Patient Education/Counseling: Diagnosis, Treatment Family Education/Counseling: Diagnosis, Treatment SEPSIS Sepsis Screen Date sepsis recognized/suspect: Aug 09, 2025 Time Sepsis recognized/suspect: 020 Recent Procedure: No On Antibiotic Therapy: No Respiratory Rate >20: No Heart Rate >90: No Temp<36 C (96.8 F) or >38.3 C: No SBP <90 or MAP <65 mmHG: No New Acute Mental Status Change: No Is the patient on CPAP, BIPAP,: No Physician Orders Ct Ab Pel Wo Con-No Oral Or Iv (08/09/25 02:30) Potassium Chl 20meq/100ml (08/09/25 04:15) Ceftriaxone 1gm/50ml (Rocephin) (08/09/25 05:45) Vital Signs Date Time Temp Pulse Resp B/P (MAP) Pulse Ox O2 Delivery O2 Flow Rate FiO2 08/09/25 05:45 68 20 92 Room Air 08/09/25 04:16 98.4 68 18 151/61 (91) 92 98.4 08/09/25 02:05 97.8 73 18 121/66 94 97.8 Laboratory Tests Test 08/09/25 02:45 08/09/25 03:15 White Blood Count 9.3 10^3/uL (4.4-10.8) Lactic Acid Level 1.1 mmol/L (0.4-2.0) Medications Medications Dose Ordered Sig/Rafael Route Start Time Stop Time Status Last Admin Dose Admin Ketorolac Tromethamine 15 mg ONCE ONCE IV 08/09/25 02:30 08/09/25 02:34 DC 08/09/25 04:10 Ondansetron HCl 4 mg ONCE ONCE IV 08/09/25 02:30 08/09/25 02:34 DC 08/09/25 04:10 Pantoprazole Sodium 40 mg ONCE ONCE IV 08/09/25 02:30 08/09/25 02:34 DC 08/09/25 04:10 Sodium Chloride 1,000 ml @ 1,000 mls/hr Q1H ONCE IV 08/09/25 04:45 08/09/25 05:44 DC 08/09/25 05:10 Departure 1 Departure Time of Disposition: 06:00 Impression: Primary Impression: Ureterolithiasis Additional Impression: Nausea and vomiting Disposition: ADMITTED INPATIENT Condition: Fair Comments Patient will be admitted to this facility for management of ureterolithiasis, and suspected hydronephrosis, she will require IV fluids/IV antibiotics and IV analgesia Critical Care Note Critical Care Time?: No Stability Stability form required: KAYKAY Nelson RESIDENT Aug 09, 2025 02:37
[2025-08-09 03:39] LABS: Hematocrit 45.2 % (36.0-46.0); Hemoglobin 15.3 g/dL (12.2-16.2); Mean Corpuscular Hemoglobin 29.8 pg (28.0-32.0); Mean Corpuscular Volume 87.8 fL (80.0-100.0); Nucleated Red Blood Cells % 0.0 %
[2025-08-09 03:50] LABS: Alanine Aminotransferase 10 U/L (7-40); Albumin 4.2 g/dL (3.2-4.8); Anion Gap 13 (5-15); BUN/Creatinine Ratio 9.9 (10.0-20.0); Blood Urea Nitrogen 12 mg/dL (9-23); Carbon Dioxide 23 mmol/L (20-31); Total Protein 7.8 g/dL (5.7-8.2)
[2025-08-09 03:51] LABS: Bilirubin, Total 0.4 mg/dL (0.2-1.0)
[2025-08-09 04:02] LABS: Alkaline Phosphatase 117 U/L (46-116); Calcium 8.6 mg/dL (8.7-10.4); Chloride 109 mmol/L (98-107); Glucose 138 mg/dL (74-106); Potassium 3.4 mmol/L (3.5-5.1); Sodium 145 mmol/L (136-145)
[2025-08-09] MEDS: KETOROLAC TROMETH 30 MG/ML 1ML VIAL IV ONE (04:10)
[2025-08-09] MEDS: PANTOPRAZOLE 40 MG/10 ML VIAL INJ IV ONE (04:10)
[2025-08-09] MEDS: ONDANSETRON HCL 4 MG/2 ML VIAL IV ONE (04:10)
[2025-08-09] MEDS ORDERED: POTASSIUM CHL 20MEQ/100ML 100 ML IV ONE (04:15)
[2025-08-09 04:17] LABS: Urine Protein, UAD 1+ (Negative)
[2025-08-09] MEDS: SODIUM CHLORIDE 0.9% 1,000 ML IV ONE (05:10)
--- NOTE | 2025-08-09 05:57 | DVH ---
Exam: CT CT AB PEL WO CON-NO ORAL OR IV History: Right flank and lower abdominal pain, nausea and vomiting. Comparison Study: CT CT AB PEL WO CON-NO ORAL OR IV on DOS: 02/19/25 Technique: Multidetector spiral CT of the abdomen and pelvis was performed from lung bases to pubic s ymphysis. Imaging was performed without intravenous contrast. Coronal and sagittal multiplanar reform ats were obtained from the axial data set by the technologist. Radiation Dose : 1. Abdomen/Pelvis: CTDIvol 25.54 mGy, DLP 1499.3 mGy*cm. Findings: Evaluation of vasculature and solid organs is limited due to lack of intravenous contrast use. Lung Bases: Lung bases are clear. Visualized portions of the heart and pericardium are unremarkable. Liver: The liver is normal in size. No focal lesions. Gallbladder and Biliary Tree: The gallbladder is surgically absent. No intrahepatic or extrahepatic biliary ductal dilatation. Spleen: Unremarkable Pancreas: The pancreas is grossly unremarkable. Adrenal Glands: Unremarkable Kidneys: There is mild right hydronephrosis secondary to 3 mm obstructive calculus at the right urete rovesical junction. The left kidney and ureter are unremarkable. GI tract: The stomach is grossly normal in appearance. No evidence of small bowel wall thickening or abnormal dilatation to suggest bowel obstruction. The colon is unremarkable. The appendix is visualiz ed and is normal. Peritoneum/mesentery/retroperitoneum. No evidence of free intraperitoneal air. No ascites. No evidenc e of suspicious lymphadenopathy. Abdominal Wall: Unremarkable. Vasculature: The visualized abdominal aorta is normal in size and caliber. Evaluation of abdominal a nd pelvic vessels is limited due to lack of intravenous contrast. Urinary Bladder: Grossly unremarkable for degree of distention. Pelvic Organs: Unremarkable Musculoskeletal: No aggressive focal bony lesions, acute fractures or dislocation. There are degenera tive changes in the bilateral hips and in the lumbar spine IMPRESSION: 1. Mild right hydronephrosis secondary to 3 mm obstructive calculus at the right ureterovesical junct ion. 2. Cholecystectomy.
[2025-08-09] MEDS: TAMSULOSIN HYDROCHLORIDE 0.4 MG CAP PO ONE ×2 (06:44→08:20)
[2025-08-09] MEDS: LEVOTHYROXINE SODIUM 50 MCG TAB PO ONE (06:45)
[2025-08-09] MEDS: POTASSIUM CHL 20 Meq TABLET PO ONE (06:45)
--- NOTE | 2025-08-09 07:39 | DVHHP2 ---
History of Present Illness Reason for Visit: Right flank pain History of Present Illness Sharda Alvarez is a 45-year-old female with past medical history of hypertension, nephrolithiasis, lithotripsy, , cholecystectomy, and thyroidectomy who presents to the ED with right flank pain, nausea, and vomiting x3 days. Patient reports that the emesis was yellowish in color. Reports that her pain is 10/10 sharp and radiating to the groin. She also reports urinary urgency with loose watery stool x1 day. Patient denies any hematuria or hematemesis or hematochezia. Patient reports that medications make the pain better. She also reports that she had some chicken soup yesterday also added some tabasco and Sami rice. Shortly afterwards started vomiting, she states she thinks it was the food. Patient reports that pain was worsening which is what prompted her to come into the ED. Patient also reports that she was being seen by Dr. Bryant and had a lithotripsy back in February. Patient denies any recent trauma or injury, recent sick contacts, recent travels, chest pain, shortness of breath, fever, chills, lightheadedness, weakness, or dizziness. She also reports that she ambulates without DMEs. Cardiovascular: HTN Past Medical History Nephrolithiasis Past Surgical History: Cholecystectomy, , Other (Lithotripsy and thyroidectomy) Family History: Cancer, Hypertension, Other (Mom with colon cancer and hypertension.) Smoke: No ALCOHOL: none Drugs: None Lives: with Family Domestic Violence: Neg Review of Systems Gastrointestinal: Nausea, Vomiting Musculoskeletal: other (Right flank pain) Allergies: Coded Allergies: NO KNOWN ALLERGIES (Unverified , 02/15/25) Exam Vital Signs Vital Signs Date Time Temp Pulse Resp B/P (MAP) Pulse Ox O2 Delivery O2 Flow Rate FiO2 08/09/25 05:45 68 20 92 Room Air 08/09/25 04:16 98.4 151/61 (91) 98.4 General Appearance: Alert, Oriented X3, Cooperative, No acute distress HEENT: Atraumatic, PERRLA, EOMI, Mucous membr. moist/pink Respiratory: Clear to auscultation, Normal air movement Cardiovascular: Regular rate, Normal S1, Normal S2, No murmurs Abdominal: Normal bowel sounds, Soft Extremities: No edema, Normal pulses Skin: No significant lesion Neuro: Normal speech, Strength at 5/5 X4 ext, Normal tone, Sensation intact Psych/Mental Status: Mental status NL, Mood NL Labs/Xrays Labs Test 08/09/25 03:53 08/09/25 03:52 08/09/25 03:15 08/09/25 02:45 Range/Units Urine Color Yellow Yellow Urine Clarity Turbid H Clear Urine pH 6.0 5.0-9.0 Urine Specific [place] 1.025 1.001-1.035 Urine Protein 1+ H Negative Urine Ketones Trace Negative Urine Blood 2+ H Negative /uL Urine Nitrite Negative Negative Urine Bilirubin Negative Negative Urine Urobilinogen Normal Negative mg/dL Urine Leukocyte Esterase 3+ Negative /uL Urine RBC 10 0 - 4 /hpf Urine Microscopic WBC 11 H 0-5 /HPF Urine Squamous Epithelial Cells Mod <5 /hpf Urine Calcium Oxalate Crystals Mod None Seen Urine Bacteria None seen None Seen /hpf Urine Glucose Normal Normal mg/dL Urine Test Negative Negative Lactic Acid Level 1.1 0.4-2.0 mmol/L White Blood Count 9.3 4.4-10.8 10^3/uL Red Blood Count 5.15 4.0-5.20 10^6/uL Hemoglobin 15.3 12.2-16.2 g/dL Hematocrit 45.2 36.0-46.0 % Mean Corpuscular Volume 87.8 80.0-100.0 fL Mean Corpuscular Hemoglobin 29.8 28.0-32.0 pg Mean Corpuscular Hemoglobin Concent 33.9 32.0-36.0 g/dL Red Cell Distribution Width 16.1 H 11.8-14.3 % Platelet Count 303 140-450 10^3/uL Mean Platelet Volume 8.2 6.9-10.8 fL Neutrophils (%) (Auto) 80.8 H 37.0-80.0 % Lymphocytes (%) (Auto) 14.3 10.0-50.0 % Monocytes (%) (Auto) 4.1 0.0-12.0 % Eosinophils (%) (Auto) 0.5 0.0-7.0 % Basophils (%) (Auto) 0.3 0.0-2.0 % Neutrophils # (Auto) 7.5 1.6-8.6 10 ^3/uL Lymphocytes # (Auto) 1.3 0.4-5.4 10 ^3/uL Monocytes # (Auto) 0.4 0-1.3 10 ^3/uL Eosinophils # (Auto) 0.1 0-0.8 10 ^3/uL Basophils # (Auto) 0 0-0.2 10 ^3/uL Nucleated Red Blood Cells 0.0 % Sodium Level 145 136-145 mmol/L Potassium Level 3.4 L 3.5-5.1 mmol/L Chloride Level 109 H 98-107 mmol/L Carbon Dioxide Level 23 20-31 mmol/L Anion Gap 13 5-15 Blood Urea Nitrogen 12 9-23 mg/dL Creatinine 1.21 H 0.550-1.02 mg/dL Glomerular Filtration Rate Calc 56 >90 mL/min BUN/Creatinine Ratio 9.9 L 10.0-20.0 Serum Glucose 138 H 74-106 mg/dL Calcium Level 8.6 L 8.7-10.4 mg/dL Total Bilirubin 0.4 0.2-1.0 mg/dL Aspartate Amino Transferase (AST) 26 13-40 U/L Alanine Aminotransferase (ALT) 10 7-40 U/L Alkaline Phosphatase 117 H 46-116 U/L Total Protein 7.8 5.7-8.2 g/dL Albumin 4.2 3.2-4.8 g/dL Lipase 36 12-53 U/L Exam: CT CT AB PEL WO CON-NO ORAL OR IV History: Right flank and lower abdominal pain, nausea and vomiting. Comparison Study: CT CT AB PEL WO CON-NO ORAL OR IV on DOS: 02/19/25 Technique: Multidetector spiral CT of the abdomen and pelvis was performed from lung bases to pubic symphysis. Imaging was performed without intravenous contrast. Coronal and sagittal multiplanar reformats were obtained from the axial data set by the technologist. Radiation Dose : 1. Abdomen/Pelvis: CTDIvol 25.54 mGy, DLP 1499.3 mGy*cm. Findings: Evaluation of vasculature and solid organs is limited due to lack of intravenous contrast use. Lung Bases: Lung bases are clear. Visualized portions of the heart and pericardium are unremarkable. Liver: The liver is normal in size. No focal lesions. Gallbladder and Biliary Tree: The gallbladder is surgically absent. No intrahepatic or extrahepatic biliary ductal dilatation. Spleen: Unremarkable Pancreas: The pancreas is grossly unremarkable. Adrenal Glands: Unremarkable Kidneys: There is mild right hydronephrosis secondary to 3 mm obstructive calculus at the right ureterovesical junction. The left kidney and ureter are unremarkable. GI tract: The stomach is grossly normal in appearance. No evidence of small bowel wall thickening or abnormal dilatation to suggest bowel obstruction. The colon is unremarkable. The appendix is visualized and is normal. Peritoneum/mesentery/retroperitoneum. No evidence of free intraperitoneal air. No ascites. No evidence of suspicious lymphadenopathy. Abdominal Wall: Unremarkable. Vasculature: The visualized abdominal aorta is normal in size and caliber. Evaluation of abdominal and pelvic vessels is limited due to lack of intravenous contrast. Urinary Bladder: Grossly unremarkable for degree of distention. Pelvic Organs: Unremarkable Musculoskeletal: No aggressive focal bony lesions, acute fractures or dislocation. There are degenerative changes in the bilateral hips and in the lumbar spine IMPRESSION: 1. Mild right hydronephrosis secondary to 3 mm obstructive calculus at the right ureterovesical junction. 2. Cholecystectomy. SEPSIS Sepsis Screen Date sepsis recognized/suspect: Aug 09, 2025 Time Sepsis recognized/suspect: 415 Recent Procedure: No On Antibiotic Therapy: No Respiratory Rate >20: No Heart Rate >90: No Temp<36 C (96.8 F) or >38.3 C: No SBP <90 or MAP <65 mmHG: No New Acute Mental Status Change: No Is the patient on CPAP, BIPAP,: No Physician Orders Ct Ab Pel Wo Con-No Oral Or Iv (08/09/25 02:30) * Urology Consult (08/09/25 06:06) Vital Signs Date Time Temp Pulse Resp B/P (MAP) Pulse Ox O2 Delivery O2 Flow Rate FiO2 08/09/25 05:45 68 20 92 Room Air 08/09/25 04:16 98.4 68 18 151/61 (91) 92 98.4 08/09/25 02:05 97.8 73 18 121/66 94 97.8 Laboratory Tests Test 08/09/25 02:45 08/09/25 03:15 White Blood Count 9.3 10^3/uL (4.4-10.8) Lactic Acid Level 1.1 mmol/L (0.4-2.0) Medications Medications Dose Ordered Sig/Rafael Route Start Time Stop Time Status Last Admin Dose Admin Ketorolac Tromethamine 15 mg ONCE ONCE IV 08/09/25 02:30 08/09/25 02:34 DC 08/09/25 04:10 15 MG Ondansetron HCl 4 mg ONCE ONCE IV 08/09/25 02:30 08/09/25 02:34 DC 08/09/25 04:10 4 MG Pantoprazole Sodium 40 mg ONCE ONCE IV 08/09/25 02:30 08/09/25 02:34 UT 08/09/25 04:10 40 MG Sodium Chloride 1,000 ml @ 1,000 mls/hr Q1H ONCE IV 08/09/25 04:45 08/09/25 05:44 DC 08/09/25 05:10 1,000 MLS/HR Assessment/Plan Assessment/Plan Assessment Intractable right flank pain with nausea and vomiting likely due to mild right hydronephrosis secondary to 3 mm obstructive calculus at the right ureterovesical junction UTI Hypokalemia Elevated ALP Morbid obesity History of Cholecystectomy History of hypertension History of nephrolithiasis History of lithotripsy History of History of thyroidectomy Plan Admit to med surge Replete lytes Flomax Antiemetics Pain management IV antibiotics-ceftriaxone NS 1 L given ED Lactic noted Lipase noted CT abdomen and pelvis noted UCG noted IV fluids NPO Home medications reconciled DVT prophylaxis-SCDs PUD prophylaxis-PPIs Discussed plan of care with patient and nurse Urology consult Counseled patient on lifestyle modifications, diet, and exercise [id number] Preventive counseling healthy eating habits, physical activity, and regular checkups Plan discussed with: Patient Date of Service: Aug 09, 2025 Billing Provider: VALORIE SCHROEDER Common Visit Codes: [id number] INP/OBS CARE (HIGH) Secondary Visit Codes: [id number] COUNSELING IND VALORIE SCHROEDER Aug 09, 2025 07:39
[2025-08-09] MEDS ORDERED: MORPHINE SULFATE INJ 2 MG/ml SYRG IV PRN (07:45)
[2025-08-09] MEDS: SODIUM CHLORIDE 0.9% 1,000 ML IV SCH (08:09)
[2025-08-09] MEDS: HYDROcodone-ACET 5/325MG TAB PO PRN (08:09)
[2025-08-09] MEDS: ONDANSETRON HCL 4 MG/2 ML VIAL IV PRN (08:09)
[2025-08-09] MEDS: PANTOPRAZOLE 40 MG/10 ML VIAL INJ IV SCH (08:20)
--- NOTE | 2025-08-09 11:05 | DVHPN2 ---
Subjective PATIENT DENIES ANY SYMPTOMS AT THIS TIME. Reviewed: Care Plan, H&P, Labs, Medications Changes from previous H/P or p: No Changes General: Per HPI Gastrointestinal: Nausea, Vomiting Musculoskeletal: other (Right flank pain) Objective Vitals Vital Signs Date Time Temp Pulse Resp B/P (MAP) Pulse Ox O2 Delivery O2 Flow Rate FiO2 08/09/25 08:00 97.5 68 22 141/98 (112) 93 97.5 08/09/25 08:00 Room Air* 0 21 General Appearance: Alert, Oriented X3, Cooperative, No acute distress, Other (Obese) HEENT: Atraumatic, PERRLA Lungs: Clear to auscultation Cardiovascular: Normal S1, Normal S2 Genitourinary: No Apparent Abnormalities Skin: Dry, Intact Psych/Mental Status: Mental status NL, Mood NL Medications Current Medications Medications Dose Ordered Sig/Rafael Route Start Time Stop Time Status Last Admin Dose Admin Ceftriaxone Sodium 50 ml @ 100 mls/hr DAILY@09 IV 08/09/25 09:00 Tamsulosin HCl 0.4 mg QPM PO 08/09/25 18:00 Sodium Chloride 1,000 ml @ 120 mls/hr Q8H20M IV 08/09/25 07:45 08/09/25 08:09 120 MLS/HR Acetaminophen/ Hydrocodone Bitart 1 tab Q4HP PRN PO 08/09/25 07:45 08/09/25 08:09 1 TAB Ondansetron HCl 4 mg Q4HP PRN IV 08/09/25 07:45 08/09/25 08:09 4 MG Acetaminophen 650 mg Q6HP PRN PO 08/09/25 07:45 Morphine Sulfate 2 mg Q4HPRN PRN IV 08/09/25 07:45 Pantoprazole Sodium 40 mg DAILY IV 08/09/25 07:45 08/09/25 10:29 40 MG Laboratory Results Laboratory Tests 08/09/25 02:45 Chemistry Test 08/09/25 02:45 Albumin 4.2 g/dL (3.2-4.8) Calcium Level 8.6 mg/dL (8.7-10.4) L Total Protein 7.8 g/dL (5.7-8.2) Lipid panel Test 08/09/25 02:45 Lipase 36 U/L (12-53) LFT Test 08/09/25 02:45 Alanine Aminotransferase (ALT) 10 U/L (7-40) Alkaline Phosphatase 117 U/L (46-116) H Aspartate Amino Transferase (AST) 26 U/L (13-40) Total Bilirubin 0.4 mg/dL (0.2-1.0) Urinalysis Test 08/09/25 03:52 08/09/25 03:53 Urine Test Negative (Negative) Urine Color Yellow (Yellow) Urine Clarity Turbid (Clear) H Urine pH 6.0 (5.0-9.0) Urine Specific [place] 1.025 (1.001-1.035) Urine Protein 1+ (Negative) H Urine Ketones Trace (Negative) Urine Blood 2+ /uL (Negative) H Urine Nitrite Negative (Negative) Urine Bilirubin Negative (Negative) Urine Urobilinogen Normal mg/dL (Negative) Urine Leukocyte Esterase 3+ /uL (Negative) Urine RBC 10 /hpf (0 - 4) Urine Microscopic WBC 11 /HPF (0-5) H Urine Squamous Epithelial Cells Mod /hpf (<5) Urine Calcium Oxalate Crystals Mod (None Seen) Urine Bacteria None seen /hpf (None Seen) Urine Glucose Normal mg/dL (Normal) Labs and/or images reviewed: Labs reviewed by me, Image(s) reviewed by me Assessment/Plan Assessment/Plan Impression: -obstructive uropathy -nephrolithiasis -obesity -hypokalemia -complicated cystitis Plan: -IV Rocephin -propulsion therapy -urology consultation -potassium replacement -pain management, antiemetic -repeat labs in a.m. Total time spent with patient discussing and formulating plan of care: 35 minutes. This medical document was created using an electronic medical record system with [employer] dictation system. Although this document has been carefully reviewed, there may still be some phonetic and typographical errors. These areas are purely typographical due to imperfections of the software programs, and do not reflect any compromise in the patient's medical care. Plan discussed with: Patient, Other (Rn) Date of Service: Aug 09, 2025 Billing Provider: LESTER FINLEY NP Common Visit Codes: 51661-ATR/OBS SAME DATE (HIGH) LESTER FINLEY NP Aug 09, 2025 11:05
--- NOTE | 2025-08-09 11:23 | DVHINCON2 ---
Date of service: Aug 09, 2025 Referring Physician Hospitalist Reason for Consultation UVJ stone History of Present Illness History Source: Patient, RN Notes, MD Notes Exam Limitations: No limitations HPI 45-year-old female presented to the ER with a chief complaint of right flank pain, nausea and vomiting for the past 3 days. Her symptoms started on 08/06 with nausea and vomiting, which was nonbloody and yellowish in color, patient thought that gastroenteritis and she stated home. She started experiencing right-sided flank pain radiating to the groin, sharp, 10/10 in intensity starting associated with nausea and vomiting, chills but no fever earlier today. She does reports urinary urgency but denies frequency or hematuria, she is experiencing 2-3 episodes of loose watery stool for the past couple of days. Denies any sick contacts, denies any travel history Past medical history: history of right-sided kidney stones status post lithotripsy, cholecystectomy, thyroid resection Home medications: Losartan 100 mg, levothyroxine 25 mcg, calcium and vitamin-D Social history: Lives with , has not menstruated in the past 10 years, on Depo injections Home Meds Reported Medications Cholecalciferol (D3) 2,000 Unit Cap, PO DAILY, CAP 03/09/25 Multiple Vitamins W/ Minerals (MULTI COMPLETE) Complete Cap, 1 OR DAILY, CAP 03/09/25 Calcium W/ Vitamins D & K (CALCIUM + D) Chw, 1 OR DAILY, TAB.CHEW 03/09/25 Potassium Chloride (Klor-Con M20) 20 Meq Tab, 20 MEQ PO DAILY, TAB 03/09/25 Levothyroxine Sodium (Levothyroxine Sodium) 200 Mcg Tab, 1 TAB PO DAILY 02/19/25 Losartan Potassium & Hydrochlo (Hyzaar) 1 Tab Tab, 1 TAB PO DAILY, #30 TAB 5 Refills 02/19/25 Amlodipine Besylate (Amlodipine Besylate) 10 Mg Tab, 1 TAB PO DAILY, #30 TAB 5 Refills 02/19/25 Levothyroxine Sodium (Levothyroxine Sodium) 25 Mcg Tab, 1 TAB PO DAILY 02/19/25 Tamsulosin Hcl (Tamsulosin Hcl) 0.4 Mg Cap, 1 PO DAILY 02/19/25 Past Medical History Patient Family History: Colon cancer G8 MOTHER FH: thyroid condition MATERNAL GRANDMOTHER Hypertension G8 MOTHER MATERNAL GRANDMOTHER Review of Systems Gastrointestinal: Abdominal Pain Genitourinary: Pain H&P Exam Vital Signs Vital Signs Date Time Temp Pulse Resp B/P (MAP) Pulse Ox O2 Delivery O2 Flow Rate FiO2 08/09/25 08:00 97.5 68 22 141/98 (112) 93 97.5 08/09/25 08:00 Room Air* 0 21 General Appeara: Well developed, Well nourished, Normal Appearance, Obese Labs/Xrays [place] [address] Ph: [phone] DIAGNOSTIC IMAGING Diagnostic Imaging Report : [id number] Signed PATIENT: MITZY COMER ACCT: [id number] UNIT: [id number] : 1980 LOC: ER ROOM / BED: / AGE / SEX: 45 / F ADM STATUS: REG ER SERVICE 0230 ORDERING PHYSICIAN: KAYKAY CROFT RESIDENT PROCEDURE(s): ABPL - CT AB PEL WO CON-NO ORAL OR IV REASON: Right flank and lower abdominal pain, nausea and vomiting ORDER NUMBER(s): [id number], ACCESSION NUMBER(s): [id number] Exam: CT CT AB PEL WO CON-NO ORAL OR IV History: Right flank and lower abdominal pain, nausea and vomiting. Comparison Study: CT CT AB PEL WO CON-NO ORAL OR IV on DOS: 02/19/25 Technique: Multidetector spiral CT of the abdomen and pelvis was performed from lung bases to pubic symphysis. Imaging was performed without intravenous contrast. Coronal and sagittal multiplanar reformats were obtained from the axial data set by the technologist. Radiation Dose : 1. Abdomen/Pelvis: CTDIvol 25.54 mGy, DLP 1499.3 mGy*cm. Findings: Evaluation of vasculature and solid organs is limited due to lack of intravenous contrast use. Lung Bases: Lung bases are clear. Visualized portions of the heart and pericardium are unremarkable. Liver: The liver is normal in size. No focal lesions. Gallbladder and Biliary Tree: The gallbladder is surgically absent. No intrahepatic or extrahepatic biliary ductal dilatation. Spleen: Unremarkable Pancreas: The pancreas is grossly unremarkable. Adrenal Glands: Unremarkable Kidneys: There is mild right hydronephrosis secondary to 3 mm obstructive calculus at the right ureterovesical junction. The left kidney and ureter are unremarkable. GI tract: The stomach is grossly normal in appearance. No evidence of small bowel wall thickening or abnormal dilatation to suggest bowel obstruction. The colon is unremarkable. The appendix is visualized and is normal. Peritoneum/mesentery/retroperitoneum. No evidence of free intraperitoneal air. No ascites. No evidence of suspicious lymphadenopathy. Abdominal Wall: Unremarkable. Vasculature: The visualized abdominal aorta is normal in size and caliber. Evaluation of abdominal and pelvic vessels is limited due to lack of intravenous contrast. Urinary Bladder: Grossly unremarkable for degree of distention. Pelvic Organs: Unremarkable Musculoskeletal: No aggressive focal bony lesions, acute fractures or dislocation. There are degenerative changes in the bilateral hips and in the lumbar spine IMPRESSION: 1. Mild right hydronephrosis secondary to 3 mm obstructive calculus at the right ureterovesical junction. 2. Cholecystectomy. ATED BY: TAURUS HARGROVE MD DICTATED DATE/TIME: 08/09/25553 SIGNED BY: TAURUS HARGROVE MD SIGNED DATE/TIME: 08/09/25553 CC: Labs Test 08/09/25 03:53 08/09/25 03:52 08/09/25 03:15 08/09/25 02:45 Range/Units Urine Color Yellow Yellow Urine Clarity Turbid H Clear Urine pH 6.0 5.0-9.0 Urine Specific [place] 1.025 1.001-1.035 Urine Protein 1+ H Negative Urine Ketones Trace Negative Urine Blood 2+ H Negative /uL Urine Nitrite Negative Negative Urine Bilirubin Negative Negative Urine Urobilinogen Normal Negative mg/dL Urine Leukocyte Esterase 3+ Negative /uL Urine RBC 10 0 - 4 /hpf Urine Microscopic WBC 11 H 0-5 /HPF Urine Squamous Epithelial Cells Mod <5 /hpf Urine Calcium Oxalate Crystals Mod None Seen Urine Bacteria None seen None Seen /hpf Urine Glucose Normal Normal mg/dL Urine Test Negative Negative Lactic Acid Level 1.1 0.4-2.0 mmol/L White Blood Count 9.3 4.4-10.8 10^3/uL Red Blood Count 5.15 4.0-5.20 10^6/uL Hemoglobin 15.3 12.2-16.2 g/dL Hematocrit 45.2 36.0-46.0 % Mean Corpuscular Volume 87.8 80.0-100.0 fL Mean Corpuscular Hemoglobin 29.8 28.0-32.0 pg Mean Corpuscular Hemoglobin Concent 33.9 32.0-36.0 g/dL Red Cell Distribution Width 16.1 H 11.8-14.3 % Platelet Count 303 140-450 10^3/uL Mean Platelet Volume 8.2 6.9-10.8 fL Neutrophils (%) (Auto) 80.8 H 37.0-80.0 % Lymphocytes (%) (Auto) 14.3 10.0-50.0 % Monocytes (%) (Auto) 4.1 0.0-12.0 % Eosinophils (%) (Auto) 0.5 0.0-7.0 % Basophils (%) (Auto) 0.3 0.0-2.0 % Neutrophils # (Auto) 7.5 1.6-8.6 10 ^3/uL Lymphocytes # (Auto) 1.3 0.4-5.4 10 ^3/uL Monocytes # (Auto) 0.4 0-1.3 10 ^3/uL Eosinophils # (Auto) 0.1 0-0.8 10 ^3/uL Basophils # (Auto) 0 0-0.2 10 ^3/uL Nucleated Red Blood Cells 0.0 % Sodium Level 145 136-145 mmol/L Potassium Level 3.4 L 3.5-5.1 mmol/L Chloride Level 109 H 98-107 mmol/L Carbon Dioxide Level 23 20-31 mmol/L Anion Gap 13 5-15 Blood Urea Nitrogen 12 9-23 mg/dL Creatinine 1.21 H 0.550-1.02 mg/dL Glomerular Filtration Rate Calc 56 >90 mL/min BUN/Creatinine Ratio 9.9 L 10.0-20.0 Serum Glucose 138 H 74-106 mg/dL Calcium Level 8.6 L 8.7-10.4 mg/dL Total Bilirubin 0.4 0.2-1.0 mg/dL Aspartate Amino Transferase (AST) 26 13-40 U/L Alanine Aminotransferase (ALT) 10 7-40 U/L Alkaline Phosphatase 117 H 46-116 U/L Total Protein 7.8 5.7-8.2 g/dL Albumin 4.2 3.2-4.8 g/dL Lipase 36 12-53 U/L Assessment/Plan Problem List: (1) Ureterolithiasis (2) Flank pain Plan expulsive measures pain meds IVF outpt follow up Plan discussed with: Patient, Other ZAINAB CARRERA NP Aug 09, 2025 11:23
[2025-08-09] MEDS: TAMSULOSIN HYDROCHLORIDE 0.4 MG CAP PO SCH (18:51)
[2025-08-09 20:57] VITALS: BP 152/92; PULSE 63; RESP 18; TEMP 98.3; O2SAT 94
[2025-08-09 22:12] VITALS: BP 152/92; PULSE 65; RESP 18; TEMP 98.3; O2SAT 95
[2025-08-10 01:00] VITALS: BP 118/63; PULSE 82; RESP 17; TEMP 98.3; O2SAT 97
[2025-08-10] MEDS: ACETAMINOPHEN 325 MG TAB PO PRN (04:28)
[2025-08-10 04:52] VITALS: BP 138/96; PULSE 76; RESP 18; TEMP 98.3; O2SAT 97
[2025-08-10 06:23] LABS: Hematocrit 39.8 % (36.0-46.0); Hemoglobin 13.6 g/dL (12.2-16.2); Mean Corpuscular Hemoglobin 29.9 pg (28.0-32.0); Mean Corpuscular Volume 87.5 fL (80.0-100.0); Nucleated Red Blood Cells % 0.0 %
[2025-08-10 06:41] LABS: Albumin 3.6 g/dL (3.2-4.8); Alkaline Phosphatase 104 U/L (46-116); Anion Gap 11 (5-15); BUN/Creatinine Ratio 8.0 (10.0-20.0); Bilirubin, Total 0.5 mg/dL (0.2-1.0); Blood Urea Nitrogen 11 mg/dL (9-23); Carbon Dioxide 23 mmol/L (20-31); Glucose 99 mg/dL (74-106); Total Protein 6.7 g/dL (5.7-8.2)
[2025-08-10 06:44] LABS: Alanine Aminotransferase < 9 U/L (7-40); Calcium 8.0 mg/dL (8.7-10.4); Chloride 112 mmol/L (98-107); Potassium 3.4 mmol/L (3.5-5.1); Sodium 146 mmol/L (136-145)
[2025-08-10] MEDS: SOD CHL 0.45% 1,000 ML IV SCH (08:45)
[2025-08-10 09:00] VITALS: BP 105/61; PULSE 77; RESP 19; TEMP 98.6; O2SAT 96
[2025-08-10] MEDS ORDERED: CIPR500T4 PO (09:08)
[2025-08-10] MEDS ORDERED: TRAM-626 PO (09:10)
--- NOTE | 2025-08-10 09:18 | DVHDS2 ---
Discharge Summary Date of Admission Aug 09, 2025 at 07:32 Date of Discharge: Aug 10, 2025 Admitting Diagnosis Hydronephrosis Labs/Diagnostic Data: Laboratory Results Test 08/10/25 04:42 08/09/25 03:53 08/09/25 03:52 08/09/25 03:15 White Blood Count 11.1 10^3/uL (4.4-10.8) Red Blood Count 4.55 10^6/uL (4.0-5.20) Hemoglobin 13.6 g/dL (12.2-16.2) Hematocrit 39.8 % (36.0-46.0) Mean Corpuscular Volume 87.5 fL (80.0-100.0) Mean Corpuscular Hemoglobin 29.9 pg (28.0-32.0) Mean Corpuscular Hemoglobin Concent 34.1 g/dL (32.0-36.0) Red Cell Distribution Width 16.0 % (11.8-14.3) Platelet Count 270 10^3/uL (140-450) Mean Platelet Volume 8.2 fL (6.9-10.8) Neutrophils (%) (Auto) 75.0 % (37.0-80.0) Lymphocytes (%) (Auto) 17.5 % (10.0-50.0) Monocytes (%) (Auto) 6.2 % (0.0-12.0) Eosinophils (%) (Auto) 1.1 % (0.0-7.0) Basophils (%) (Auto) 0.2 % (0.0-2.0) Neutrophils # (Auto) 8.3 10 ^3/uL (1.6-8.6) Lymphocytes # (Auto) 2.0 10 ^3/uL (0.4-5.4) Monocytes # (Auto) 0.7 10 ^3/uL (0-1.3) Eosinophils # (Auto) 0.1 10 ^3/uL (0-0.8) Basophils # (Auto) 0 10 ^3/uL (0-0.2) Nucleated Red Blood Cells 0.0 % Sodium Level 146 mmol/L (136-145) Potassium Level 3.4 mmol/L (3.5-5.1) Chloride Level 112 mmol/L (98-107) Carbon Dioxide Level 23 mmol/L (20-31) Anion Gap 11 (5-15) Blood Urea Nitrogen 11 mg/dL (9-23) Creatinine 1.37 mg/dL (0.550-1.02) Glomerular Filtration Rate Calc 49 mL/min (>90) BUN/Creatinine Ratio 8.0 (10.0-20.0) Serum Glucose 99 mg/dL (74-106) Calcium Level 8.0 mg/dL (8.7-10.4) Total Bilirubin 0.5 mg/dL (0.2-1.0) Aspartate Amino Transferase (AST) 22 U/L (13-40) Alanine Aminotransferase (ALT) < 9 U/L (7-40) Alkaline Phosphatase 104 U/L (46-116) Total Protein 6.7 g/dL (5.7-8.2) Albumin 3.6 g/dL (3.2-4.8) Urine Color Yellow (Yellow) Urine Clarity Turbid (Clear) Urine pH 6.0 (5.0-9.0) Urine Specific [place] 1.025 (1.001-1.035) Urine Protein 1+ (Negative) Urine Ketones Trace (Negative) Urine Blood 2+ /uL (Negative) Urine Nitrite Negative (Negative) Urine Bilirubin Negative (Negative) Urine Urobilinogen Normal mg/dL (Negative) Urine Leukocyte Esterase 3+ /uL (Negative) Urine RBC 10 /hpf (0 - 4) Urine Microscopic WBC 11 /HPF (0-5) Urine Squamous Epithelial Cells Mod /hpf (<5) Urine Calcium Oxalate Crystals Mod (None Seen) Urine Bacteria None seen /hpf (None Seen) Urine Glucose Normal mg/dL (Normal) Urine Test Negative (Negative) Lactic Acid Level 1.1 mmol/L (0.4-2.0) Test 08/09/25 02:45 Lipase 36 U/L (12-53) Other Laboratory Tests 08/10/25 04:42 Brief Hx & Hospital Course: History of Present Illness Sharda Alvarez is a 45-year-old female with past medical history of hypertension, nephrolithiasis, lithotripsy, , cholecystectomy, and thyroidectomy who presents to the ED with right flank pain, nausea, and vomiting x3 days. Patient reports that the emesis was yellowish in color. Reports that her pain is 10/10 sharp and radiating to the groin. She also reports urinary urgency with loose watery stool x1 day. Patient denies any hematuria or hematemesis or hematochezia. Patient reports that medications make the pain better. She also reports that she had some chicken soup yesterday also added some tabasco and [place] rice. Shortly afterwards started vomiting, she states she thinks it was the food. Patient reports that pain was worsening which is what prompted her to come into the ED. Patient also reports that she was being seen by Dr. Bryant and had a lithotripsy back in February. Patient denies any recent trauma or injury, recent sick contacts, recent travels, chest pain, shortness of breath, fever, chills, lightheadedness, weakness, or dizziness. She also reports that she ambulates without DMEs. Course of hospitalization: Patient was started on propulsion therapy, pain management, as well as IV Rocephin given patient has UTI. Today, patient's pain has improved. Patient will be discharged home with while antibiotic therapy in the form of ciprofloxacin 500 mg p.o. b.i.d. for additional five days. Patient is creatinine was noted to have a slight increase. It was discussed with the patient regarding her home medication meloxicam, for which she should not take daily if not pain. She is instructed to follow up with her PCP in 1-2 weeks. If patient has further obstructive uropathy pain, patient will be provided tramadol 50 mg p.o. q.12 hours as needed. Patient was agreeable with discharge plan. All questions answered. Physical examination General: Alert and Oriented x3. No acute distress. Well-nourished. Obese Eyes: EOMI. Anicteric. HENT: Moist mucous membranes. Lungs: Clear to auscultation bilaterally. No accessory muscle use. Cardiovascular: Regular rate and rhythm. No murmur. No JVD. Abdomen: Soft, non-tender and non-distended. No palpable masses. Extremities: No edema. Non-tender. Skin: No rashes or lesions. Warm. Neurologic: No focal neurological deficits. CN II-XII grossly intact, but not individually tested. Psychiatric: Cooperative. Appropriate mood and affect. Total time spent with patient discussing and formulating plan of care: 35 minutes. This medical document was created using an electronic medical record system with [employer] dictation system. Although this document has been carefully reviewed, there may still be some phonetic and typographical errors. These areas are purely typographical due to imperfections of the software programs, and do not reflect any compromise in the patient's medical care. Consults/Reason for consult Urology: Obstructive uropathy Condition at Discharge: Fair Final Diagnosis/Problems List -obstructive uropathy -nephrolithiasis -obesity -hypokalemia -complicated cystitis Discharge Disposition: Home Discharge Instruct/Medications Diet: Regular Activity: No Restrictions, As Tolerated Follow Up/Referral: Follow up with PCP, Cm Ross DNP in one week Medications: Ciprofloxacin 500 mg p.o. b.i.d. x5 days Tramadol 50 mg p.o. q.12 hours as needed for [id number] pain Continue all home medications. Instructed patient only take prescribed meloxicam as needed for pain at nighttime Scheduled Amlodipine Besylate (Amlodipine Besylate), 1 TAB PO DAILY, (Reported) Calcium W/ Vitamins D & K (Calcium + D), 1 OR DAILY, (Reported) Cholecalciferol (D3), Unknown Dose PO DAILY, (Reported) Ciprofloxacin Hcl (Ciprofloxacin Hcl), 1 TAB PO BID Levothyroxine Sodium (Levothyroxine Sodium), 1 TAB PO DAILY, (Reported) Levothyroxine Sodium (Levothyroxine Sodium), 1 TAB PO DAILY, (Reported) Losartan Potassium & Hydrochlo (Hyzaar), 1 TAB PO DAILY, (Reported) Multiple Vitamins W/ Minerals (Multi Complete), 1 OR DAILY, (Reported) Potassium Chloride (Klor-Con M20), 20 MEQ PO DAILY, (Reported) Tamsulosin Hcl (Tamsulosin Hcl), 1 PO DAILY, (Reported) Scheduled PRN Tramadol HCl (Tramadol HCl), 50 MG PO Q12HP PRN 36 Discharge Statement: "Patient was advised to return to the ER or call 911 if any headaches, dizziness, shortness of breath, chest pain, abdominal pain, bleeding, fevers, or worsening of medical condition. Patient was counseled about treatment plan, medications, possible side effects, patientverbalized understanding. All questions were answered to the best of my ability. This discharge took greater then 30 minutes in planning, reviewing documentation, counseling the patient, and discussing with other team members." ASSESSMENT ASSESSMENT Assessment Obstructive uropathy Date of Service: Aug 10, 2025 Billing Provider: LESTER FINLEY NP Common Visit Codes: 23184-CCS/OBS DISCH DAY >30min LESTER FINLEY NP Aug 10, 2025 09:18
[2025-08-10] MEDS: POTASSIUM EFFERVESENT TAB 25 MEQ PO ONE (10:03)
[2025-08-10] MEDS: CIPROFLOXACIN HCL 500 MG TAB PO SCH (10:03)
[2025-08-10 11:00] VITALS: BP 152/73; PULSE 76; RESP 17; TEMP 97.9; O2SAT 98
== END 2025-08-10 10:43 | disposition home or self-care (01) | DRG 690 ==
LOC: EEVIPCON 02:02 → ER 02:02 → OVERFLOW 07:32 → CENTRAL 20:25
PROVIDERS: ADMIT Nurse Practitioner Acute Care; ATTEND Nurse Practitioner Acute Care
DX: N30.90 Cystitis, unspecified without hematuria (principal); Z68.42 Body mass index [BMI] 45.0-49.9, adult; N20.2 Calculus of kidney with calculus of ureter; N13.9 Obstructive and reflux uropathy, unspecified; E87.6 Hypokalemia; E66.01 Morbid (severe) obesity due to excess calories; I10 Essential (primary) hypertension; E89.0 Postprocedural hypothyroidism; Z90.49 Acquired absence of other specified parts of digestive tract; Z87.442 Personal history of urinary calculi; Z98.891 History of uterine scar from previous surgery; Z80.0 Family history of malignant neoplasm of digestive organs; Z82.49 Family history of ischemic heart disease and other diseases of the circulatory system; Z79.899 Other long term (current) drug therapy
CPT/HCPCS: 36415; 74176; 80053; 81001; 81025; 83605; 83690; 85025; 96365; 96375; G0378; J1885; J2405; J2470

== ENCOUNTER → 2025-08-18 | Outpatient (CLI) | payer BC ==
[~2025-08-18] MED LIST changes: +CIPR500T4 PO; +TRAM-626 PO
[2025-08-18 08:01] LABS: Hematocrit 44.4 % (36.0-46.0); Hemoglobin 15.2 g/dL (12.2-16.2); Mean Corpuscular Hemoglobin 29.6 pg (28.0-32.0); Mean Corpuscular Volume 86.3 fL (80.0-100.0); Nucleated Red Blood Cells % 0.1 %
[2025-08-18 08:16] LABS: Beta HCG, Quantitative 2.6 mIU/mL (1.5-4.2)
[2025-08-18 08:17] LABS: Alanine Aminotransferase 12 U/L (7-40); Albumin 4.2 g/dL (3.2-4.8); Alkaline Phosphatase 106 U/L (46-116); Anion Gap 13 (5-15); BUN/Creatinine Ratio 9.8 (10.0-20.0); Blood Urea Nitrogen 10 mg/dL (9-23); Calcium 8.7 mg/dL (8.7-10.4); Carbon Dioxide 25 mmol/L (20-31); Chloride 105 mmol/L (98-107); Glucose 102 mg/dL (74-106); Sodium 143 mmol/L (136-145); Total Protein 7.8 g/dL (5.7-8.2)
[2025-08-18 08:18] LABS: Bilirubin, Total 0.5 mg/dL (0.2-1.0)
[2025-08-18 08:19] LABS: Thyroid Stimulating Hormone 18.1 uIU/mL (0.55-4.78)
[2025-08-18 08:43] LABS: Potassium 3.3 mmol/L (3.5-5.1)
[2025-08-18 11:59] LABS: Follicle Stimulating Hormone 43.64 IU/L (SEE BELOW)
[2025-08-18 12:07] LABS: Free T4 (Free Thyroxine) 1.36 ng/dL (0.89-1.76)
== END | disposition home or self-care (01) ==
LOC: LAB 07:23
DX: N95.1 Menopausal and female climacteric states (principal); Z79.899 Other long term (current) drug therapy
CPT/HCPCS: 36415; 80053; 82670; 83001; 83002; 83036; 83525; 84146; 84270; 84402; 84403; 84439; 84443; 84702; 85025

== ENCOUNTER 2025-09-19 10:57 | Outpatient (CLI) | payer BC ==
[2025-09-19 12:11] LABS: Hematocrit 44.5 % (36.0-46.0); Hemoglobin 15.4 g/dL (12.2-16.2); Mean Corpuscular Hemoglobin 30.3 pg (28.0-32.0); Mean Corpuscular Volume 87.8 fL (80.0-100.0); Nucleated Red Blood Cells % 0.1 %
[2025-09-19 12:26] LABS: Alanine Aminotransferase 12 U/L (7-40); Albumin 4.3 g/dL (3.2-4.8); Alkaline Phosphatase 122 U/L (46-116); Anion Gap 10 (5-15); BUN/Creatinine Ratio 14.3 (10.0-20.0); Bilirubin, Total 0.6 mg/dL (0.2-1.0); Blood Urea Nitrogen 12 mg/dL (9-23); Calcium 8.9 mg/dL (8.7-10.4); Carbon Dioxide 28 mmol/L (20-31); Chloride 108 mmol/L (98-107); Cholesterol 216 mg/dL (< 200); Glucose 80 mg/dL (74-106); HDL Cholesterol 48 mg/dL (40-59); Potassium 3.5 mmol/L (3.5-5.1); Sodium 146 mmol/L (136-145); Total Protein 7.8 g/dL (5.7-8.2); Triglycerides 208 mg/dL (< 150)
[2025-09-19 13:13] LABS: Urine Protein, UAD TRACE (Negative)
== END 2025-09-19 17:00 | disposition home or self-care (01) ==
LOC: LAB 10:57
PROVIDERS: ATTEND Nurse Practitioner
DX: I10 Essential (primary) hypertension (principal); E78.5 Hyperlipidemia, unspecified; R73.9 Hyperglycemia, unspecified
CPT/HCPCS: 36415; 80053; 80061; 81001; 83036; 84443; 85025